=== PATIENT | female | born 1960 | race Caucasian/White ===

== ENCOUNTER → 2017-12-23 | Outpatient (CLI) | payer BC ==
[~2017-12-23] MED LIST: ADVIL; ASPEC325 PO; ATOR-24 PO; CLOP1TAB15 PO; LPR25 PO; LSN25 PO; NTRSLP4 SL; [UNRECOGNIZED DRUG - OTHER]
[2017-12-23 12:40] LABS: BASO % 0.5 %; BASO ABS # 0.04 K/uL (0-0.2); EOS % 2.8 %; EOS ABS # 0.23 K/uL (0-0.5); HEMATOCRIT 47.1 % (37-47); HEMOGLOBIN 15.7 g/dL (12.0-16.0); IG# 0.02 K/uL (0.00-0.02); LYMPH % 28.2 %; MEAN CELL VOLUME 90.4 fL (80-100); MEAN CORPUSCULAR HEMOGLOBIN 30.1 pg (25-34); MEAN CORPUSCULAR HGB CONC 33.3 g/dl (32-36); MEAN PLATELET VOLUME 12.8 fL (7.4-10.4); MONO % 6.4 %; MONO ABS # 0.52 K/uL (0.11-0.59); NEUT % 61.9 %; NEUT ABS # 5.05 K/uL (1.4-6.5); PLATELET COUNT 189 K/uL (130-400); RED CELL DISTRIBUTION WIDTH CV 14.4 % (11.5-14.5); RED CELL DISTRIBUTION WIDTH SD 48.3 fL (36.4-46.3); WHITE BLOOD COUNT 8.16 K/uL (4.8-10.8)
[2017-12-23 13:07] LABS: HEMOGLOBIN A1C 6.3 % (4.5-5.6)
[2017-12-23 13:59] LABS: ALBUMIN 3.9 gm/dl (3.4-5.0); ALT/SGPT 29 U/L (12-78); AST/SGOT 17 U/L (15-37); BLOOD UREA NITROGEN 25 mg/dl (7-18); CALCIUM 9.5 mg/dl (8.5-10.1); CARBON DIOXIDE 32 mmol/L (21-32); CHOLESTEROL 139 mg/dl (0-200); CREATININE 0.88 mg/dl (0.60-1.20); GLUCOSE 96 mg/dl (70-99); POTASSIUM 4.1 mmol/L (3.5-5.1); SODIUM 138 mmol/L (136-145)
[2017-12-23 14:12] LABS: ALKALINE PHOSPHATASE 95 U/L (45-117); LDL CHOLESTEROL CALCULATED 80 mg/dl; TOTAL PROTEIN 7.6 gm/dl (6.4-8.2)
== END | disposition home or self-care (01) ==
LOC: C.LABPVFM 10:19
PROVIDERS: ATTEND Internal Medicine Cardiovascular Disease
DX: R73.01 Impaired fasting glucose (principal)

== ENCOUNTER 2020-06-13 04:10 | Inpatient (IN) ==
[2020-06-13] MEDS ORDERED: SODIUM CHLORIDE 0.9% 1000ML 1,000 ML IV ONE ×2 (04:38→06:01)
[2020-06-13] MEDS ORDERED: CEFEPIME 2,000 MG/20 ML VIAL IV STA (04:38)
[2020-06-13] MEDS ORDERED: VANCOMYCIN HCL 2,750 MG in SODIUM CHLORIDE 0.9% 500 ML IV ONE (04:49)
[2020-06-13] MEDS ORDERED: VANCOMYCIN CONSULT ACTIVE PRN (04:49)
--- NOTE | 2020-06-13 05:05 | Emergency Department Note ---
History of Present Illness General Chief complaint: Infection Stated complaint: GURWINDER PORT INFECTED Time Seen by Provider: 06/13/20 04:24 Source: patient Mode of arrival: ambulatory Limitations: no limitations History of Present Illness Provider complaint: "My chemo port is infected and now I have a fever" Onset (ago): day(s) 2 Location: chest Severity: moderate Pain Consistency: + constant Current Pain Intensity: 0 Quality: + aching and + sharp Relieved By: + none Exacerbated By: + movement and + other (palpation) Associated symptoms: + fever/chills Treatments prior to arrival: other (antibiotics) This 59-year-old female patient presents the emergency department today for evaluation of infected Chemo-Port and fever. The patient does have a history of non-small cell lung cancer which has metastasized and has been getting chemotherapy treatments. Her most recent treatment was on 06/07/2020. The oriana garvey had a [id number] placed in the right chest on 05/21/2020. The patient states for the past 2 to 3 days, she has been experiencing some pain in the area of the port. She was seen yesterday by her surgeon, Dr. Beltran, who obtained a culture and started her on what is believed to be Augmentin. The patient states she has been taking these medications, but that 3 AM awoke due to the pain in the port and noticed that she had a fever of 100.3 F. The patient states there has been purulent discharge coming from the port for the past 2 nights. The patient had the port cleaned as an outpatient yesterday due to the infection. She denies any associated symptoms including chest pain, dyspnea, nausea, vomiting, numbness, tingling, weakness, headache, dizziness, or other associated symptoms. She is scheduled for her next chemotherapy treatment on 06/24/2020. Home Medications Home Medications Medication Instructions Recorded Confirmed Type acyclovir 400 mg tablet 400 mg PO UD PRN tab 06/19/19 06/13/20 History nitroglycerin 0.4 mg sublingual 0.4 mg SL Q5M PRN #100 tab 06/19/19 06/13/20 History tablet albuterol sulfate 90 mcg/actuation 1 puffs INH Q6H PRN #18 gm 07/20/19 06/13/20 Rx aerosol inhaler acetaminophen [Tylenol Arthritis 650 mg PO Q12H PRN 04/15/20 06/13/20 History Pain] aspirin 81 mg PO QAM 04/15/20 06/13/20 History bupropion HCl 300 mg 24 hr tablet, 300 mg PO QAM 05/02/20 06/13/20 History extended release cetirizine 10 mg capsule 10 mg PO DAILY PRN cap 05/02/20 06/13/20 History cholecalciferol (vitamin D3) 25 25 mcg PO QAM 05/02/20 06/13/20 History mcg (1,000 unit) capsule metformin 500 mg tablet,extended 500 mg PO HS tab 05/02/20 06/13/20 History release 24 hr metoprolol succinate 50 mg 50 mg PO HS tab 05/02/20 06/13/20 History tablet,extended release 24 hr ondansetron HCl 8 mg tablet 8 mg PO Q8H PRN 05/02/20 06/13/20 History prochlorperazine maleate 10 mg 10 mg PO Q6H PRN 05/02/20 06/13/20 History tablet tiotropium bromide 2.5 2 puffs INH QAM 05/02/20 06/13/20 History mcg/actuation mist for inhalation dexamethasone 4 mg tablet 4 mg PO TID #60 tab 05/20/20 06/13/20 Rx oxycodone-acetaminophen [Percocet] 1 tab PO Q6H PRN #10 tab 05/21/20 06/13/20 Rx atorvastatin 80 mg tablet 80 mg PO HS #90 tab 05/29/20 06/13/20 Rx clopidogrel 75 mg tablet 75 mg PO QAM #90 tab 05/29/20 06/13/20 Rx amoxicillin-pot clavulanate 1 tab PO BID 06/13/20 06/13/20 History furosemide 20 mg PO DAILY 06/13/20 06/13/20 History losartan 50 mg PO DAILY 06/13/20 06/13/20 History Allergies Allergy/AdvReac Type Severity Reaction Status Date / Time LETTY Inhibitors Allergy Unknown Unknown Verified 06/13/20 05:02 lisinopril Allergy Unknown Unknown Verified 06/13/20 05:02 tree and shrub pollen Allergy Nasal Verified 06/13/20 05:02 Discharge Past Med/Surg History Medical History CAD (coronary artery disease) S/p stent 2011 Diabetes mellitus, type 2 prediabetic Family history of reaction to anesthesia sister is hard to awaken Hypertension Lung mass small cell. 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 Sister No problems noted. Social History Smoking Status: Former smoker Tobacco Type: Cigarettes Age Started Using Tobacco: 15; Age Quit Using Tobacco: 59; packs per day: 1; Second Hand Exposure: Yes; Hx Alcohol Use: No Hx Substance Use: Yes (very occ marijuana) Last Used Substance: Days (ago) Last Used Substance Other:: uses for RLS. 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 Feels Safe at Home: Yes Childhood Exposure to Second-Hand Smoke: Yes caffeine: No Dental Care, Regularly: No Physical Activity Frequency: Does not Exercise Seatbelt Use: always Sunscreen Use: No Review of Systems A total of 10 systems reviewed and were otherwise negative Physical Exam Vital Signs Vital Signs - 24 hr 06/13/20 04:15 06/13/20 04:30 06/13/20 04:45 Temperature 37.8 C H Temperature Source Oral Pulse Rate 128 H 130 H 124 H Pulse Rate from SpO2 Sensor 130 H Respiratory Rate 18 25 H 33 H Respiratory Effort / Characteristics Non-Labored Spontaneous Respiratory Depth Normal Blood Pressure 122/51 L 100/88 131/78 Blood Pressure Mean 74 90 114 Pulse Oximetry 94 92 Oxygen Delivery Method Room Air Sepsis Recent Fever Within 48 Hours Yes Sepsis New/Unexplained Change in Mental Status No Sepsis Action Taken by Nursing No Action Required 06/13/20 05:00 06/13/20 05:01 06/13/20 05:15 Temperature Temperature Source Pulse Rate 130 H 126 H Pulse Rate from SpO2 Sensor 130 H 126 H Respiratory Rate 20 26 H 26 H Respiratory Effort / Characteristics Spontaneous Respiratory Depth Blood Pressure 136/95 105/70 Blood Pressure Mean 102 84 Pulse Oximetry 93 93 92 Oxygen Delivery Method Room Air Sepsis Recent Fever Within 48 Hours Sepsis New/Unexplained Change in Mental Status Sepsis Action Taken by Nursing 06/13/20 05:16 06/13/20 05:30 06/13/20 05:31 Temperature 39.5 C H Temperature Source Oral Pulse Rate 127 H 128 H Pulse Rate from SpO2 Sensor 127 H 128 H Respiratory Rate 24 21 Respiratory Effort / Characteristics Respiratory Depth Blood Pressure 121/66 Blood Pressure Mean 77 Pulse Oximetry 92 93 Oxygen Delivery Method Sepsis Recent Fever Within 48 Hours Sepsis New/Unexplained Change in Mental Status Sepsis Action Taken by Nursing 06/13/20 05:54 06/13/20 06:00 06/13/20 06:15 Temperature Temperature Source Pulse Rate 126 H 125 H 120 H Pulse Rate from SpO2 Sensor 127 H 125 H 121 H Respiratory Rate 25 H 17 21 Respiratory Effort / Characteristics Respiratory Depth Blood Pressure 88/47 L 100/70 99/46 L Blood Pressure Mean 71 75 75 Pulse Oximetry 93 93 92 Oxygen Delivery Method Sepsis Recent Fever Within 48 Hours Sepsis New/Unexplained Change in Mental Status Sepsis Action Taken by Nursing 06/13/20 06:30 06/13/20 06:36 06/13/20 07:04 Temperature 37.4 C Temperature Source Oral Pulse Rate 119 H Pulse Rate from SpO2 Sensor 120 H Respiratory Rate 25 H Respiratory Effort / Characteristics Respiratory Depth Blood Pressure 94/47 L Blood Pressure Mean 65 Pulse Oximetry 93 93 Oxygen Delivery Method Room Air Sepsis Recent Fever Within 48 Hours Sepsis New/Unexplained Change in Mental Status Sepsis Action Taken by Nursing VITALS: Vitals are noted on the nurse's note and reviewed by myself. Vital signs stable. GENERAL: This is a 59-year-old white female, in no acute distress, nondiaphoretic, well-developed well-nourished. SKIN: Ecchymosis noted in the area of the port on the right anterior chest. There is tenderness to palpation of the right anterior chest wall. There is purulent discharge noted from the incision site. There is warmth of the area. The skin was otherwise without rashes, erythema, edema, or bruising. There is no tenting of the skin. Capillary refill less than 2 seconds. HEAD: Normocephalic atraumatic. EYES: Conjunctivae without injection, sclerae without icterus. NECK: Supple without nuchal rigidity. No lymphadenopathy. No JVD. HEART: Regular rate and rhythm without murmurs gallops or rubs. LUNGS: Clear to auscultation bilaterally without wheezes, rales or rhonchi. No retractions or accessory muscle use. MUSCULOSKELETAL: No muscle atrophy, erythema, or edema noted. Full range of motion without joint tenderness in all extremities. No tenderness to palpation. Strength 5/5 throughout. NEURO: Patient was alert and oriented to person place and time. Normal sensation to light and sharp touch. No focal neurological deficits. Course Course The patient was seen and evaluated as above. An order was placed for continuous cardiac monitoring. The monitor shows a sinus tachycardia at a rate of 125 bpm. I discussed the case with my attending physician. IV access obtained, labs drawn. Patient medicated with IV fluids, cefepime, vancomycin. Patient medicated with IV acetaminophen due to fever. Imaging performed and reviewed by myself and radiologist as noted. Labs reviewed by myself. I discussed the findings with the patient at bedside. I discussed the case with Dr. Nunez, [facility] physician. He did agree to see and evaluate the patient. Administered Medications Vancomycin HCl 2,750 mg/ (Sodium Chloride) 555 mls @ 200 mls/hr IV NOW ONE Stop: 06/13/20 07:18 Last Admin: 06/13/20 05:21 Dose: 200 mls/hr Documented by: [id number] Magnesium Sulfate/Dextrose (Magnesium Sulfate / D5w) 1 gm in 100 mls @ 50 mls/hr IV Q2H LALY Stop: 06/13/20 10:14 Last Admin: 06/13/20 06:19 Dose: 50 mls/hr Documented by: [id number] Discontinued Medications Dexamethasone (Dexamethasone Sod Inj 4 Mg/Ml Vial) Confirm Administered Dose 4 mg .ROUTE .STK-MED ONE Stop: 06/13/20 07:07 Last Admin: 06/13/20 07:10 Dose: 4 mg Documented by: [id number] Cefepime HCl (Maxipime) 2,000 mg in 20 mls @ 5 mls/min IV NOW STA; Protocol Stop: 06/13/20 04:41 Last Admin: 06/13/20 04:57 Dose: 5 mls/min Documented by: [id number] Sodium Chloride (Nss 1000ml) 1,000 mls @ 999 mls/hr IV .Q1H1M ONE Stop: 06/13/20 05:38 Last Infusion: 06/13/20 06:04 Dose: 0 mls/hr Documented by: [id number] Admin: 06/13/20 04:51 Dose: 999 mls/hr Documented by: [id number] Acetaminophen (Ofirmev) 1,000 mg in 100 mls @ 400 mls/hr IV NOW STA Stop: 06/13/20 05:48 Last Infusion: 06/13/20 06:09 Dose: 0 mls/hr Documented by: [id number] Admin: 06/13/20 05:52 Dose: 400 mls/hr Documented by: [id number] Sodium Chloride (Nss 1000ml) 1,000 mls @ 999 mls/hr IV .Q1H1M ONE Stop: 06/13/20 07:01 Last Admin: 06/13/20 06:18 Dose: 999 mls/hr Documented by: [id number] Dexamethasone Sodium Phosphate (4 mg/ Syringe) 1 mls @ 1 mls/min IV NOW STA Stop: 06/13/20 06:51 Last Admin: 06/13/20 07:10 Dose: Not Given Documented by: [id number] Ioversol (Optiray 320 125ml) 125 ml IV ONCE ONE Stop: 06/13/20 06:06 Last Admin: 06/13/20 06:05 Dose: 118 ml Documented by: [id number] Potassium Chloride (Potassium Chloride 20 Meq Tabcr) 40 meq PO NOW STA Stop: 06/13/20 06:07 Last Admin: 06/13/20 06:18 Dose: 40 meq Documented by: [id number] Medical Decision Making Differential Diagnosis Sepsis, UTI, pneumonia, metabolic, electrolyte abnormalities, cardiac sources, i ntracerebral event, toxicologic, neurologic, as well as other pathologies. Medical Records Attestation: I reviewed the patient's medical records. Home Medications Current Medication List: was personally reviewed by me Laboratory Data Attestation: I reviewed the patient's lab results. Patient is leukopenic with a white blood cell count of 0.35. No significant anemia. Platelet count 78,000. Coags normal. Renal, hepatic function and electrolytes without significant abnormality. Magnesium 1.6. Lactic acid 2.6. Urinalysis negative for infection. Result diagrams: 06/13/20 04:54 06/13/20 04:54 Lab Results 06/13/20 06/13/20 06/13/20 Range/Units 04:54 04:54 04:54 WBC 0.35 L* (4.8-10.8) K/uL RBC 4.00 L (4.2-5.4) M/uL Hgb 12.1 (12.0-16.0) g/dL Hct 36.7 L (37-47) % MCV 91.8 (80-100) fL MCH 30.3 (25-34) pg MCHC 33.0 (32-36) g/dL RDW Std Deviation 51.5 H (36.4-46.3) fL RDW Coeff of Placido 15.2 H (11.5-14.5) % Plt Count 78 L (130-400) K/uL MPV 10.2 (7.4-10.4) fL Immature Gran % (Auto) Cancelled Neut % (Auto) Cancelled Lymph % (Auto) Cancelled [place] % (Auto) Cancelled Eos % (Auto) Cancelled Baso % (Auto) Cancelled Neut # (Auto) Cancelled Lymph # (Auto) Cancelled [place] # (Auto) Cancelled Eos # (Auto) Cancelled Baso # (Auto) Cancelled Immature Gran # (Auto) Cancelled Neutrophils % (Manual) Cancelled Band Neutrophils % Cancelled Lymphocytes % (Manual) Cancelled Prolymphocyte % Cancelled Reactive Lymphs % (Man) Cancelled Monocytes % (Manual) Cancelled Eosinophils % (Manual) Cancelled Basophils % (Manual) Cancelled Metamyelocytes % (Man) Cancelled Myelocytes % (Man) Cancelled Promyelocytes % (Man) Cancelled Blast Cells % (Manual) Cancelled Plasma Cell % (Manual) Cancelled Other Cells % Cancelled Nucleated RBC % Cancelled Neutrophils # (Manual) Cancelled Band Neutrophils # Cancelled Total Absolute Neuts Cancelled Lymphocytes # (Manual) Cancelled Prolymphocyte # Cancelled Reactive Lymphs # Cancelled Total Abs Lymphocytes Cancelled Monocytes # (Manual) Cancelled Eosinophils # (Manual) Cancelled Basophils # (Manual) Cancelled Metamyelocytes # (Man) Cancelled Myelocytes # (Manual) Cancelled Promyelocytes # (Man) Cancelled Blast Cells # (Man) Cancelled Plasma Cell # (Manual) Cancelled Other Cells # Cancelled Nucleated RBCs # (Man) Cancelled Hypersegmented Neuts Cancelled Hyposegmented Neuts Cancelled Hypogranular Neuts Cancelled Large Granular Lymphs Cancelled # Lrg Granular Lymphs Cancelled Hairy Cells Cancelled Smudge Cells Cancelled Toxic Granulation Cancelled Toxic Vacuolation Cancelled Dohle Bodies Cancelled Leyla Rods Cancelled Platelet Estimate Decreased L (Normal) Hypogranular Platelets Cancelled Clumped Platelets Cancelled Giant Platelets Cancelled Platelet Satelliting Cancelled RBC Morphology Cancelled Polychromasia Cancelled Hypochromasia Cancelled Poikilocytosis Cancelled Basophilic Stippling Cancelled Anisocytosis Cancelled Microcytosis Cancelled Macrocytosis Cancelled Spherocytes Cancelled Pappenheimer Bodies Cancelled Sickle Cells Cancelled Target Cells Cancelled Tear Drop Cells Cancelled Ovalocytes Cancelled Stomatocytes Cancelled [place] Bodies Cancelled Echinocytes Cancelled Acanthocytes (Spur) Cancelled Rouleaux Cancelled RBC Agglutinates Cancelled Schistocytes Cancelled RBC Morph Comment Cancelled Sezary Cell Cancelled PT 10.9 (9.0-12.0) Seconds INR 1.0 (0.9-1.1) APTT 23.4 (21.0-31.0) Seconds PTT Ratio 0.8 Sodium 140 (136-145) mmol/L Potassium 3.7 (3.5-5.1) mmol/L Chloride 107 (98-107) mmol/L Carbon Dioxide 27 (21-32) mmol/L Anion Gap 6.0 (3-11) BUN 21 H (7-18) mg/dl Creatinine 0.74 (0.6-1.2) mg/dl Est Cr Clr Drug Dosing 118.6 ml/min Est GFR ( Amer) 102.8 Est GFR (Non-Af Amer) 88.7 BUN/Creatinine Ratio 27.8 H (10-20) Glucose 123 H (70-99) mg/dl Lactate (0.4-2.0) mmol/L Calcium 8.3 L (8.5-10.1) mg/dl Magnesium 1.6 L (1.8-2.4) mg/dl Total Bilirubin 1.0 (0.2-1) mg/dl AST 19 (15-37) U/L ALT 61 (12-78) U/L Alkaline Phosphatase 69 (45-117) U/L Total Protein 6.1 L (6.4-8.2) gm/dl Albumin 2.6 L (3.4-5.0) gm/dl Globulin 3.5 (2.5-4.0) gm/dl Albumin/Globulin Ratio 0.7 L (0.9-2) Urine Color Urine Appearance (Clear) Urine pH (4.5-7.5) Ur Specific Atkins (1.000-1.030) Urine Protein (Negative) Urine Glucose (UA) (Negative) Urine Ketones (Negative) Urine Blood (Negative) Urine Nitrite (Negative) Urine Bilirubin (Negative) Urine Urobilinogen (Negative) Ur Leukocyte Esterase (Negative) Urine WBC (Auto) (0-5) /hpf Urine RBC (Auto) (0-4) /hpf U Hyaline Cast (Auto) (0-5) /lpf U Epithel Cells (Auto) (0-5) /lpf Urine Bacteria (Auto) (Negative) 06/13/20 06/13/20 Range/Units 04:54 05:15 WBC (4.8-10.8) K/uL RBC (4.2-5.4) M/uL Hgb (12.0-16.0) g/dL Hct (37-47) % MCV (80-100) fL MCH (25-34) pg MCHC (32-36) g/dL RDW Std Deviation (36.4-46.3) fL RDW Coeff of Placido (11.5-14.5) % Plt Count (130-400) K/uL MPV (7.4-10.4) fL Immature Gran % (Auto) Neut % (Auto) Lymph % (Auto) [place] % (Auto) Eos % (Auto) Baso % (Auto) Neut # (Auto) Lymph # (Auto) [place] # (Auto) Eos # (Auto) Baso # (Auto) Immature Gran # (Auto) Neutrophils % (Manual) Band Neutrophils % Lymphocytes % (Manual) Prolymphocyte % Reactive Lymphs % (Man) Monocytes % (Manual) Eosinophils % (Manual) Basophils % (Manual) Metamyelocytes % (Man) Myelocytes % (Man) Promyelocytes % (Man) Blast Cells % (Manual) Plasma Cell % (Manual) Other Cells % Nucleated RBC % Neutrophils # (Manual) Band Neutrophils # Total Absolute Neuts Lymphocytes # (Manual) Prolymphocyte # Reactive Lymphs # Total Abs Lymphocytes Monocytes # (Manual) Eosinophils # (Manual) Basophils # (Manual) Metamyelocytes # (Man) Myelocytes # (Manual) Promyelocytes # (Man) Blast Cells # (Man) Plasma Cell # (Manual) Other Cells # Nucleated RBCs # (Man) Hypersegmented Neuts Hyposegmented Neuts Hypogranular Neuts Large Granular Lymphs # Lrg Granular Lymphs Hairy Cells Smudge Cells Toxic Granulation Toxic Vacuolation Dohle Bodies Leyla Rods Platelet Estimate (Normal) Hypogranular Platelets Clumped Platelets Giant Platelets Platelet Satelliting RBC Morphology Polychromasia Hypochromasia Poikilocytosis Basophilic Stippling Anisocytosis Microcytosis Macrocytosis Spherocytes Pappenheimer Bodies Sickle Cells Target Cells Tear Drop Cells Ovalocytes Stomatocytes [place] Bodies Echinocytes Acanthocytes (Spur) Rouleaux RBC Agglutinates Schistocytes RBC Morph Comment Sezary Cell PT (9.0-12.0) Seconds INR (0.9-1.1) APTT (21.0-31.0) Seconds PTT Ratio Sodium (136-145) mmol/L Potassium (3.5-5.1) mmol/L Chloride (98-107) mmol/L Carbon Dioxide (21-32) mmol/L Anion Gap (3-11) BUN (7-18) mg/dl Creatinine (0.6-1.2) mg/dl Est Cr Clr Drug Dosing ml/min Est GFR ( Amer) Est GFR (Non-Af Amer) BUN/Creatinine Ratio (10-20) Glucose (70-99) mg/dl Lactate 2.6 H* (0.4-2.0) mmol/L Calcium (8.5-10.1) mg/dl Magnesium (1.8-2.4) mg/dl Total Bilirubin (0.2-1) mg/dl AST (15-37) U/L ALT (12-78) U/L Alkaline Phosphatase (45-117) U/L Total Protein (6.4-8.2) gm/dl Albumin (3.4-5.0) gm/dl Globulin (2.5-4.0) gm/dl Albumin/Globulin Ratio (0.9-2) Urine Color Yellow Urine Appearance Clear (Clear) Urine pH 7.5 (4.5-7.5) Ur Specific Atkins 1.016 (1.000-1.030) Urine Protein Negative (Negative) Urine Glucose (UA) Negative (Negative) Urine Ketones Negative (Negative) Urine Blood Trace H (Negative) Urine Nitrite Negative (Negative) Urine Bilirubin Negative (Negative) Urine Urobilinogen Negative (Negative) Ur Leukocyte Esterase Negative (Negative) Urine WBC (Auto) 1-5 (0-5) /hpf Urine RBC (Auto) 5-10 H (0-4) /hpf U Hyaline Cast (Auto) 1-5 (0-5) /lpf U Epithel Cells (Auto) 20-30 H (0-5) /lpf Urine Bacteria (Auto) Negative (Negative) Imaging Data Attestation: I personally reviewed and interpreted this imaging study as foll ows: My Impression: Chest x-ray. Findings: A chest x-ray was performed and revealed no pneumothorax, effusion, infiltrate, pulmonary edema, free air under the diaph ragm, or wide mediastinum. Radiologist's Impression: CT chest w con CT DOSE: 1197.85 mGy.cm HISTORY: infected port right side TECHNIQUE: Multiaxial CT images of the chest were performed following the intravenous administration of contrast. A dose lowering technique was utilized adhering to the principles of ALARA. COMPARISON: 04/01/2020 FINDINGS: Central catheter in position. Infiltrative change surrounding the port involving the subcutaneous tissues. An inflammatory process is not excluded. There is no evidence for a well-defined abscess or collection. Consolidative infiltrate anterior aspect left upper lobe. Scattered small parenchymal nodules which are similar. No significant mediastinal or hilar adenopathy. IMPRESSION: 1. Central port showing no evidence for infiltrative change surrounding the port within the subcutaneous fat. 2. Inflammatory and/or infectious process is considered. 3. No evidence for abscess or collection. 4. Consolidative infiltrative process anterior aspect left upper lobe. 5. Scattered parenchymal nodules unchanged from the prior exam. ACT 112: Negative or not required by law. The above report was generated using voice recognition software. It may contain grammatical, syntax or spelling errors. Electronically signed by: Nehemiah Ayoub M.D. 06/13/2020 6:43 AM ECG Data Attestation: I personally reviewed and interpreted this ECG as follows: Indication: + tachycardia Rate (beats per minute): 129 Rhythm: + sinus tachycardia ECG [place]: + Normal ECG ST segments: no ST depression, no ST elevation and no T-wave inversions Comparison ECG Date: from (04/15/2020) Change: the following changes noted (Sinus tachycardia has now replaced sinus rhythm.) Blood Pressure Blood Pressure Findings: Normal blood pressure MDM Narrative This 59-year-old female patient presents to the emergency department today for an infected Chemo-Port. This was noted to be infected to 3 days ago. The patient was seen by the surgeon yesterday and had the port cleaned and was started on antibiotics. She woke in the middle of the night with a fever. She presents to the emergency department with a fever as well as tachycardia. She was found to be leukopenic with an elevated lactic acid. Blood cultures are pending. Culture of the wound and discharge was obtained and is pending. Patient was hydrated with IV fluids and started on IV antibiotics. She will be admitted to the [facility] service for ongoing management of the inf ection. The chart was completed utilizing [employer] Speech voice recognition software. Grammatical errors, random word insertions, pronoun errors, and incomplete sentences are an occasional consequence of this system due to software limitations, ambient noise, and hardware issues. Any formal questions or concerns about the content, text, or information contained within the body of this dictation should be directly addressed to the provider for clarification. Impression & Plan Sepsis, Lung cancer metastatic to brain, Infected venous access port Discharge Plan Visit Data Chief Complaint: Infection Stated Complaint: GURWINDER PORT INFECTED ED Provider: Bella Ku ED Midlevel Provider: Leigh Quispe Discharge Problem: Sepsis, Lung cancer metastatic to brain, Infected venous access port Patient Disposition: Admitted As Inpatient Forms Stand Alone Forms: On License Of [facility], Virtual Emergency Department, Important Visit Information Prescriptions Prescriptions: No Action ondansetron HCl 8 mg tablet 8 mg PO Q8H PRN (Reason: Nausea) RF: 0 prochlorperazine maleate 10 mg tablet 10 mg PO Q6H PRN (Reason: Nausea) RF: 0 bupropion HCl 300 mg tablet extended release 24 hr 300 mg PO QAM RF: 0 Allergy Relief (cetirizine) 10 mg capsule 10 mg PO DAILY PRN (Reason: Allergy Symptoms) RF: 0 cholecalciferol (vitamin D3) 25 mcg (1,000 unit) capsule 25 mcg PO QAM RF: 0 Spiriva Respimat 2.5 mcg/actuation mist 2 puffs INH QAM RF: 0 dexamethasone 4 mg tablet 4 mg PO TID Qty: 60 RF: 0 atorvastatin 80 mg tablet 80 mg PO HS Qty: 90 RF: 3 clopidogrel 75 mg tablet 75 mg PO QAM Qty: 90 RF: 3 acyclovir 400 mg tablet 400 mg PO UD PRN (Reason: Outbreak) RF: 0 nitroglycerin 0.4 mg tablet, sublingual 0.4 mg SL Q5M PRN (Reason: chest pain) Qty: 100 RF: 0 albuterol sulfate 90 mcg/actuation HFA aerosol inhaler 1 puffs INH Q6H PRN (Reason: shortness of breath or wheezing) Qty: 18 RF: 0 oxycodone-acetaminophen [Percocet] 5-325 mg tablet 1 tab PO Q6H PRN (Reason: pain) Qty: 10 RF: 0 aspirin 81 mg Tablet,Delayed Release (Dr/Ec) 81 mg PO QAM RF: 0 acetaminophen [Tylenol Arthritis Pain] 650 mg Tablet Extended Release 650 mg PO Q12H PRN (Reason: Pain) RF: 0 metformin 500 mg tablet extended release 24 hr 500 mg PO HS RF: 0 metoprolol succinate 50 mg tablet extended release 24 hr 50 mg PO HS RF: 0 amoxicillin-pot clavulanate 875-125 mg tablet 1 tab PO BID RF: 0 furosemide 20 mg tablet 20 mg PO DAILY RF: 0 losartan 50 mg tablet 50 mg PO DAILY RF: 0 Referrals Referrals: Keila Freire, [Primary Care Provider] -
[2020-06-13 05:22] LABS: Albumin Level 2.6 gm/dl (3.4-5.0); BUN Creatinine Ratio 27.8 (10-20); Calcium 8.3 mg/dl (8.5-10.1); Creatinine Clr Calc Pharmacy 118.6 ml/min; Est GFR (African American) 102.8; Est GFR (Non-African American) 88.7; Magnesium 1.6 mg/dl (1.8-2.4); Potassium 3.7 mmol/L (3.5-5.1)
[2020-06-13 05:23] LABS: Partial Thromboplastin Ratio 0.8; Partial Thromboplastin Time 23.4 Seconds (21.0-31.0); Prothrombin Time 10.9 Seconds (9.0-12.0)
[2020-06-13 05:25] LABS: Albumin Globulin Ratio 0.7 (0.9-2); Globulin 3.5 gm/dl (2.5-4.0); Total Protein 6.1 gm/dl (6.4-8.2)
[2020-06-13 05:34] LABS: Hematocrit (blood only) 36.7 % (37-47); Hemoglobin 12.1 g/dL (12.0-16.0); Mean Corpuscular Hemoglobin 30.3 pg (25-34); Mean Corpuscular Volume 91.8 fL (80-100); Mean Platelet Volume 10.2 fL (7.4-10.4); Platelet Count 78 K/uL (130-400); RDW Coefficient of Variation 15.2 % (11.5-14.5); RDW Standard Deviation 51.5 fL (36.4-46.3); White Blood Count 0.35 K/uL (4.8-10.8)
[2020-06-13] MEDS ORDERED: ACETAMINOPHEN 1,000 MG/100 ML VIAL IV STA (05:34)
[2020-06-13 05:36] LABS: Platelet Estimate Decreased (Normal)
[2020-06-13 06:00] LABS: Appearance Urine Clear (Clear); Bacteria Urine Automated Negative (Negative); Bilirubin Urine Negative (Negative); Blood Urine Trace (Negative); Color Urine Yellow; Epithelial Cell Urine Auto 20-30 /lpf (0-5); Glucose Urine UA Negative (Negative); Ketones Urine Negative (Negative); Leukocyte Esterase Urine Negative (Negative); Nitrite Urine Negative (Negative); Specific Gravity Urine 1.016 (1.000-1.030); Urobilinogen Urine Negative (Negative); pH Urine 7.5 (4.5-7.5)
[2020-06-13] MEDS ORDERED: OPTIRAY 320 125ml IV ONE (06:05)
[2020-06-13] MEDS ORDERED: POTASSIUM CHLORIDE 20 MEQ TABCR PO STA (06:06)
[2020-06-13 06:08] LABS: Protein Urine Negative (Negative); Sulfosalicylic Acid Urine Negative (Negative)
[2020-06-13] MEDS: MAGNESIUM SULFATE / D5W 1 GM/100 ML BAG IV SCH ×2 (06:19→07:37)
--- NOTE | 2020-06-13 06:35 | History & Physical Report ---
Date of Service June 13, 2020 Assessment & Plan (1) Severe sepsis: SIRS plus lactic acidosis Immunocompromised patient hx small cell lung cancer status post chemoradiation ongoing steroid Rx Failed outpatient treatment Possible sources : Vascular device infection, history Aport placement last month Endocarditis Hypotension secondary to above Possible adrenal insufficiency hx steroid Rx for SCLC Neutropenia, thrombocytopenia secondary to sepsis hx CAD status post stent DM 2 on oral medications, well-controlled as all recent outpatient hemoglobin A1c of 6.03 Mar 2020 Facial lesions (HSV outbreak as per patient) ongoing antiviral Rx past tobacco abuse PCU given low BP Cultures, Vancomycin, Cefepime for now IVF, follow lactic acid Appropriate to hold antihypertensives for now given low BP Decadron IV 1 dose for possible adrenal insufficiency follow CT chest result Surgery consult Re: Sepsis, a port infection follow-up eval N.p.o. until patient seen by surgery Basal insulin adjusted for n.p.o. status, ISS BG goal [id number] DVT prophylaxis. SCDs RE thrombocytopenia, history intracranial mets Full code Text document was generated using [employer] voice recognition software. It may contain grammatical or spelling errors. Kindly contact undersigned for clarification of any documentation item in question. History of Present Illness Chief Complaint: Fever, chills, infected Aport site Primary Care Provider: Keila Freire DO History obtained from patient and records. Medical history significant for small cell lung cancer status post chemoradiation ongoing steroid Rx, CAD status post stent, hypertension, DM 2 on oral medications, past tobacco abuse. Last 2011 under Cardiology service for STEMI status post RCA stent placement. Patient diagnosed to have extensive small cell lung cancer with documented brain mets on MRI last April 2020. Underwent chemoradiation. Ongoing steroid taper as per patient. 3 weeks ago patient underwent tunneled Aport catheter placement on the right IJV by [facility] [place] General Surgery outpatient. Last week patient noted some discomfort and drainage on incision site. Patient seen at [facility] surgeon's office 2 days ago. Wound culture sent as per records. Topical bacitracin and Augmentin course prescribed by provider. Patient instructed to follow-up at the ER if with worsening. Patient woke up early this morning with fever, chills and pain on R port site. Achy left-sided chest discomfort nonradiating separate from a port site. No unusual cough, headache, abdominal pain/diarrhea/dysuria symptoms. At the ER, patient received vancomycin and cefepime for sepsis. 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 Allergies Allergy/AdvReac Type Severity Reaction Status Date / Time LETTY Inhibitors Allergy Unknown Unknown Verified 06/13/20 05:02 lisinopril Allergy Unknown Unknown Verified 06/13/20 05:02 tree and shrub pollen Allergy Nasal Verified 06/13/20 05:02 Discharge Home Medications Home Medications Medication Instructions Recorded Confirmed Type acyclovir 400 mg tablet 400 mg PO UD PRN tab 06/19/19 06/13/20 History nitroglycerin 0.4 mg sublingual 0.4 mg SL Q5M PRN #100 tab 06/19/19 06/13/20 History tablet albuterol sulfate 90 mcg/actuation 1 puffs INH Q6H PRN #18 gm 07/20/19 06/13/20 Rx aerosol inhaler acetaminophen [Tylenol Arthritis 650 mg PO Q12H PRN 04/15/20 06/13/20 History Pain] aspirin 81 mg PO QAM 04/15/20 06/13/20 History bupropion HCl 300 mg 24 hr tablet, 300 mg PO QAM 05/02/20 06/13/20 History extended release cetirizine 10 mg capsule 10 mg PO DAILY PRN cap 05/02/20 06/13/20 History cholecalciferol (vitamin D3) 25 25 mcg PO QAM 05/02/20 06/13/20 History mcg (1,000 unit) capsule metformin 500 mg tablet,extended 500 mg PO HS tab 05/02/20 06/13/20 History release 24 hr metoprolol succinate 50 mg 50 mg PO HS tab 05/02/20 06/13/20 History tablet,extended release 24 hr ondansetron HCl 8 mg tablet 8 mg PO Q8H PRN 05/02/20 06/13/20 History prochlorperazine maleate 10 mg 10 mg PO Q6H PRN 05/02/20 06/13/20 History tablet tiotropium bromide 2.5 2 puffs INH QAM 05/02/20 06/13/20 History mcg/actuation mist for inhalation dexamethasone 4 mg tablet 4 mg PO TID #60 tab 05/20/20 06/13/20 Rx oxycodone-acetaminophen [Percocet] 1 tab PO Q6H PRN #10 tab 05/21/20 06/13/20 Rx atorvastatin 80 mg tablet 80 mg PO HS #90 tab 05/29/20 06/13/20 Rx clopidogrel 75 mg tablet 75 mg PO QAM #90 tab 05/29/20 06/13/20 Rx amoxicillin-pot clavulanate 1 tab PO BID 06/13/20 06/13/20 History furosemide 20 mg PO DAILY 06/13/20 06/13/20 History losartan 50 mg PO DAILY 06/13/20 06/13/20 History Past Med/Surg History Medical History CAD (coronary artery disease) S/p stent 2011 Diabetes mellitus, type 2 prediabetic Family history of reaction to anesthesia sister is hard to awaken Hypertension Lung mass small cell. diagnosed dec 2019 On home oxygen therapy 02 at HS Osteoarthritis Restless leg syndrome Status post myocardial infarction of inferior wall (01/08/12) december 2011 Surgical History History of bronchoscopy 04/24/2020 History of laparoscopic cholecystectomy Hx of right coronary artery stent placement mid RCA bare metal 01/08/2012 [place] teeth extracted Family History Mother Coronary heart disease Diabetes Father , age 61 CHF Coronary heart disease Sister , age 20 MVA No problems noted. Sister No problems noted. Social History Smoking Status: Former smoker Tobacco Type: Cigarettes Age Started Using Tobacco: 15; Age Quit Using Tobacco: 59; packs per day: 1; Second Hand Exposure: No; Do You Dip or Chew Tobacco: No; Tobacco Cessation Education Requested by Patient: No Hx Alcohol Use: No Hx Substance Use: Yes Last Used Substance: Hours (ago) Last Used Substance Other:: uses for RLS. 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 Other Information That Helps Us Care for You: No Feels Safe at Home: Yes Safety Concerns: Feels Safe At This Time Childhood Exposure to Second-Hand Smoke: Yes caffeine: No Dental Care, Regularly: No Physical Activity Frequency: Does not Exercise Seatbelt Use: always Sunscreen Use: No Review of Systems Review of Systems: As per HPI, all 10 systems reviewed, all other ROS negative Physical Exam Physical Exam: GENERAL: uncomfortable, morbidly obese, Tachypneic SKIN: Normal color, warm HEENT: Alopecia, pink palpebral conjunctivae, no ptosis, some ulcerated lesions over the nasal bridge and maxilla, dry buccal mucosa NECK : Supple, short neck, no tenderness CHEST : Ecchymotic induration right chest wall, tender HEART : Tachycardic, no obvious murmurs ABDOMEN: Some distention, nontender EXTREMITIES : Ecchymotic spot RLE, bilateral LE swelling, no LE tenderness NEUROLOGIC : Coherent, no facial asymmetry, no other gross focality Results & Data Results & Data ([facility]) Vital Signs (Past 12 Hours) Vital Signs Temp Pulse Resp BP Pulse Ox 06/13/20 06:15 120 H 21 99/46 L 92 06/13/20 06:00 125 H 17 100/70 93 06/13/20 05:54 126 H 25 H 88/47 L 93 06/13/20 05:31 39.5 C H 06/13/20 05:30 128 H 21 121/66 93 06/13/20 05:16 127 H 24 92 06/13/20 05:15 126 H 26 H 105/70 92 06/13/20 05:01 130 H 26 H 136/95 93 06/13/20 05:00 20 93 06/13/20 04:45 124 H 33 H 131/78 06/13/20 04:30 130 H 25 H 100/88 92 06/13/20 04:15 37.8 C H 128 H 18 122/51 L 94 Laboratory Results Laboratory Results WBC 0.35 K/uL (4.8-10.8) L* 06/13/20 04:54 RBC 4.00 M/uL (4.2-5.4) L 06/13/20 04:54 Hgb 12.1 g/dL (12.0-16.0) 06/13/20 04:54 Hct 36.7 % (37-47) L 06/13/20 04:54 MCV 91.8 fL (80-100) 06/13/20 04:54 MCH 30.3 pg (25-34) 06/13/20 04:54 MCHC 33.0 g/dL (32-36) 06/13/20 04:54 RDW Std Deviation 51.5 fL (36.4-46.3) H 06/13/20 04:54 RDW Coeff of Placido 15.2 % (11.5-14.5) H 06/13/20 04:54 Plt Count 78 K/uL (130-400) L 06/13/20 04:54 MPV 10.2 fL (7.4-10.4) 06/13/20 04:54 Immature Gran % (Auto) Cancelled 06/13/20 04:54 Neut % (Auto) Cancelled 06/13/20 04:54 Lymph % (Auto) Cancelled 06/13/20 04:54 Eaton % (Auto) Cancelled 06/13/20 04:54 Eos % (Auto) Cancelled 06/13/20 04:54 Baso % (Auto) Cancelled 06/13/20 04:54 Neut # (Auto) Cancelled 06/13/20 04:54 Lymph # (Auto) Cancelled 06/13/20 04:54 Eaton # (Auto) Cancelled 06/13/20 04:54 Eos # (Auto) Cancelled 06/13/20 04:54 Baso # (Auto) Cancelled 06/13/20 04:54 Immature Gran # (Auto) Cancelled 06/13/20 04:54 Neutrophils % (Manual) Cancelled 06/13/20 04:54 Band Neutrophils % Cancelled 06/13/20 04:54 Lymphocytes % (Manual) Cancelled 06/13/20 04:54 Prolymphocyte % Cancelled 06/13/20 04:54 Reactive Lymphs % (Man) Cancelled 06/13/20 04:54 Monocytes % (Manual) Cancelled 06/13/20 04:54 Eosinophils % (Manual) Cancelled 06/13/20 04:54 Basophils % (Manual) Cancelled 06/13/20 04:54 Metamyelocytes % (Man) Cancelled 06/13/20 04:54 Myelocytes % (Man) Cancelled 06/13/20 04:54 Promyelocytes % (Man) Cancelled 06/13/20 04:54 Blast Cells % (Manual) Cancelled 06/13/20 04:54 Plasma Cell % (Manual) Cancelled 06/13/20 04:54 Other Cells % Cancelled 06/13/20 04:54 Nucleated RBC % Cancelled 06/13/20 04:54 Neutrophils # (Manual) Cancelled 06/13/20 04:54 Band Neutrophils # Cancelled 06/13/20 04:54 Total Absolute Neuts Cancelled 06/13/20 04:54 Lymphocytes # (Manual) Cancelled 06/13/20 04:54 Prolymphocyte # Cancelled 06/13/20 04:54 Reactive Lymphs # Cancelled 06/13/20 04:54 Total Abs Lymphocytes Cancelled 06/13/20 04:54 Monocytes # (Manual) Cancelled 06/13/20 04:54 Eosinophils # (Manual) Cancelled 06/13/20 04:54 Basophils # (Manual) Cancelled 06/13/20 04:54 Metamyelocytes # (Man) Cancelled 06/13/20 04:54 Myelocytes # (Manual) Cancelled 06/13/20 04:54 Promyelocytes # (Man) Cancelled 06/13/20 04:54 Blast Cells # (Man) Cancelled 06/13/20 04:54 Plasma Cell # (Manual) Cancelled 06/13/20 04:54 Other Cells # Cancelled 06/13/20 04:54 Nucleated RBCs # (Man) Cancelled 06/13/20 04:54 Hypersegmented Neuts Cancelled 06/13/20 04:54 Hyposegmented Neuts Cancelled 06/13/20 04:54 Hypogranular Neuts Cancelled 06/13/20 04:54 Large Granular Lymphs Cancelled 06/13/20 04:54 # Lrg Granular Lymphs Cancelled 06/13/20 04:54 Hairy Cells Cancelled 06/13/20 04:54 Smudge Cells Cancelled 06/13/20 04:54 Toxic Granulation Cancelled 06/13/20 04:54 Toxic Vacuolation Cancelled 06/13/20 04:54 Dohle Bodies Cancelled 06/13/20 04:54 Leyla Rods Cancelled 06/13/20 04:54 Platelet Estimate Decreased (Normal) L 06/13/20 04:54 Hypogranular Platelets Cancelled 06/13/20 04:54 Clumped Platelets Cancelled 06/13/20 04:54 Giant Platelets Cancelled 06/13/20 04:54 Platelet Satelliting Cancelled 06/13/20 04:54 RBC Morphology Cancelled 06/13/20 04:54 Polychromasia Cancelled 06/13/20 04:54 Hypochromasia Cancelled 06/13/20 04:54 Poikilocytosis Cancelled 06/13/20 04:54 Basophilic Stippling Cancelled 06/13/20 04:54 Anisocytosis Cancelled 06/13/20 04:54 Microcytosis Cancelled 06/13/20 04:54 Macrocytosis Cancelled 06/13/20 04:54 Spherocytes Cancelled 06/13/20 04:54 Pappenheimer Bodies Cancelled 06/13/20 04:54 Sickle Cells Cancelled 06/13/20 04:54 Target Cells Cancelled 06/13/20 04:54 Tear Drop Cells Cancelled 06/13/20 04:54 Ovalocytes Cancelled 06/13/20 04:54 Stomatocytes Cancelled 06/13/20 04:54 Pearson-Floydale Bodies Cancelled 06/13/20 04:54 Echinocytes Cancelled 06/13/20 04:54 Acanthocytes (Spur) Cancelled 06/13/20 04:54 Rouleaux Cancelled 06/13/20 04:54 RBC Agglutinates Cancelled 06/13/20 04:54 Schistocytes Cancelled 06/13/20 04:54 RBC Morph Comment Cancelled 06/13/20 04:54 Sezary Cell Cancelled 06/13/20 04:54 PT 10.9 Seconds (9.0-12.0) 06/13/20 04:54 INR 1.0 (0.9-1.1) 06/13/20 04:54 APTT 23.4 Seconds (21.0-31.0) 06/13/20 04:54 PTT Ratio 0.8 06/13/20 04:54 Sodium 140 mmol/L (136-145) 06/13/20 04:54 Potassium 3.7 mmol/L (3.5-5.1) 06/13/20 04:54 Chloride 107 mmol/L (98-107) 06/13/20 04:54 Carbon Dioxide 27 mmol/L (21-32) 06/13/20 04:54 Anion Gap 6.0 (3-11) 06/13/20 04:54 BUN 21 mg/dl (7-18) H 06/13/20 04:54 Creatinine 0.74 mg/dl (0.6-1.2) 06/13/20 04:54 Est Cr Clr Drug Dosing 118.6 ml/min 06/13/20 04:54 Est GFR ( Amer) 102.8 06/13/20 04:54 Est GFR (Non-Af Amer) 88.7 06/13/20 04:54 BUN/Creatinine Ratio 27.8 (10-20) H 06/13/20 04:54 Glucose 123 mg/dl (70-99) H 06/13/20 04:54 Lactate 2.6 mmol/L (0.4-2.0) H* 06/13/20 04:54 Calcium 8.3 mg/dl (8.5-10.1) L 06/13/20 04:54 Magnesium 1.6 mg/dl (1.8-2.4) L 06/13/20 04:54 Total Bilirubin 1.0 mg/dl (0.2-1) 06/13/20 04:54 AST 19 U/L (15-37) 06/13/20 04:54 ALT 61 U/L (12-78) 06/13/20 04:54 Alkaline Phosphatase 69 U/L (45-117) 06/13/20 04:54 Total Protein 6.1 gm/dl (6.4-8.2) L 06/13/20 04:54 Albumin 2.6 gm/dl (3.4-5.0) L 06/13/20 04:54 Globulin 3.5 gm/dl (2.5-4.0) 06/13/20 04:54 Albumin/Globulin Ratio 0.7 (0.9-2) L 06/13/20 04:54 Urine Color Yellow 06/13/20 05:15 Urine Appearance Clear (Clear) 06/13/20 05:15 Urine pH 7.5 (4.5-7.5) 06/13/20 05:15 Ur Specific Sultan 1.016 (1.000-1.030) 06/13/20 05:15 Urine Protein Negative (Negative) 06/13/20 05:15 Urine Glucose (UA) Negative (Negative) 06/13/20 05:15 Urine Ketones Negative (Negative) 06/13/20 05:15 Urine Blood Trace (Negative) H 06/13/20 05:15 Urine Nitrite Negative (Negative) 06/13/20 05:15 Urine Bilirubin Negative (Negative) 06/13/20 05:15 Urine Urobilinogen Negative (Negative) 06/13/20 05:15 Ur Leukocyte Esterase Negative (Negative) 06/13/20 05:15 Urine WBC (Auto) 1-5 /hpf (0-5) 06/13/20 05:15 Urine RBC (Auto) 5-10 /hpf (0-4) H 06/13/20 05:15 U Hyaline Cast (Auto) 1-5 /lpf (0-5) 06/13/20 05:15 U Epithel Cells (Auto) 20-30 /lpf (0-5) H 06/13/20 05:15 Urine Bacteria (Auto) Negative (Negative) 06/13/20 05:15 Diagnostic Findings Chest x-ray as per my interpretation no infiltrate; hilar adenopathy left CT chest read pending EKG as per my interpretation : Rate 130, sinus tachycardia, normal axis, no ischemia
--- NOTE | 2020-06-13 06:44 | CT Scan Report ---
CT chest w con CT DOSE: 1197.85 mGy.cm HISTORY: infected port right side TECHNIQUE: Multiaxial CT images of the chest were performed following the intravenous administration of contrast. A dose lowering technique was utilized adhering to the principles of ALARA. COMPARISON: 04/01/2020 FINDINGS: Central catheter in position. Infiltrative change surrounding the port involving the subcut aneous tissues. An inflammatory process is not excluded. There is no evidence for a well-defined absc ess or collection. Consolidative infiltrate anterior aspect left upper lobe. Scattered small parenchymal nodules which a re similar. No significant mediastinal or hilar adenopathy. IMPRESSION: 1. Central port showing no evidence for infiltrative change surrounding the port within the subcutane ous fat. 2. Inflammatory and/or infectious process is considered. 3. No evidence for abscess or collection. 4. Consolidative infiltrative process anterior aspect left upper lobe. 5. Scattered parenchymal nodules unchanged from the prior exam. ACT 112: Negative or not required by law. The above report was generated using voice recognition software. It may contain grammatical, syntax or spelling errors. Electronically signed by: Nehemiah Ayoub M.D. 06/13/2020 6:43 AM
[2020-06-13] MEDS ORDERED: DEXAMETHASONE SOD PHOSPHATE 4 MG in SYRINGE 0 ML IV STA (06:50)
[2020-06-13] MEDS ORDERED: DEXAMETHASONE SOD INJ 4 MG/ML VIAL ONE (07:06)
[2020-06-13] MEDS ORDERED: OXYCODONE HCL IR 5 MG TAB (IMMEDIATE RELEASE) PO STA (07:20)
--- NOTE | 2020-06-13 07:27 | XRay Report ---
SINGLE VIEW CHEST CLINICAL HISTORY: Sepsis. FINDINGS: An AP, portable, upright chest radiograph is compared to study dated 05/21/2020 and correlat ed with chest CT dated 04/01/2020. The examination is degraded by portable technique and patient rotati on. A right internal jugular central venous infusion port is unchanged in position. The cardiomediast inal silhouette is unremarkable. Emphysema and chronic interstitial thickening are similar to previou s. There is no airspace consolidation typical for pneumonia or large pleural effusion. Scarring/atele ctasis is seen at the lung bases. Foci of the left hilum likely corresponds to lymphadenopathy. No pn eumothorax is seen. The skeletal structures are osteopenic. The bony thorax is grossly intact. IMPRESSION: 1. No acute cardiopulmonary abnormality is identified. 2. False of the left hilum likely corresponds to hilar adenopathy when correlated with the previous c hest CT. ACT 112: Negative or not required by law. Electronically signed by: Jb Mckenzie M.D. 06/13/2020 7:25 AM
[2020-06-13] MEDS ORDERED: NSS + 20MEQ KCL 20 MEQ/1,000 ML BAG IV SCH (07:30)
[2020-06-13] MEDS ORDERED: GLUCOSE 40% GEL 15 GM TUBE PO PRN (08:09)
[2020-06-13] MEDS ORDERED: DEXTROSE 50% 50 ML SYRINGE IV PRN (08:09)
[2020-06-13] MEDS ORDERED: GLUCAGON FOR INJ 1 MG VIAL SQ PRN (08:09)
[2020-06-13] MEDS ORDERED: PROMETHAZINE HCL 12.5 MG in SODIUM CHLORIDE 0.9% 50 ML IV PRN (08:09)
[2020-06-13] MEDS ORDERED: MoRPHine SULFATE 4 MG/ML 1 ML CARP\\VIAL IV PRN ×2 (08:09→09:05)
[2020-06-13] MEDS ORDERED: GLUCOSE 10 TABS/TUBE PO PRN (08:09)
[2020-06-13] MEDS ORDERED: CARBOHYDRATES FOR HYPOGLYCEMIA PO PRN (08:09)
[2020-06-13] MEDS ORDERED: LORazepam 0.5 MG/1 ML VIAL IV PRN (08:09)
[2020-06-13] MEDS ORDERED: ACETAMINOPHEN 325 MG TAB PO PRN (08:09)
[2020-06-13] MEDS ORDERED: OXYCODONE HCL IR 5 MG TAB (IMMEDIATE RELEASE) PO PRN (08:09)
[2020-06-13] MEDS ORDERED: SODIUM CHLORIDE 0.9% 500 ML IV SCH (08:45)
[2020-06-13] MEDS ORDERED: CEFEPIME CONSULT ACTIVE PRN (08:45)
[2020-06-13] MEDS ORDERED: UMECLIDINIUM BROMIDE 62.5MCG/BLISTER 7 PUFFS/INHALER INH SCH (09:00)
[2020-06-13] MEDS ORDERED: CLOPIDOGREL BISULFATE 75 MG TAB PO SCH (09:00)
[2020-06-13] MEDS ORDERED: BuPROPion XL 300 MG TABCR PO SCH (09:00)
[2020-06-13] MEDS ORDERED: INSULIN GLARGINE SOLOSTAR 100 UNITS/ML 3 ML PEN SC SCH (09:00)
[2020-06-13] MEDS ORDERED: ASPIRIN 81 MG ECTAB PO SCH (09:00)
[2020-06-13] MEDS ORDERED: TRAMADOL HCL 50 MG TABLET ONE (09:04)
[2020-06-13] MEDS ORDERED: TRAMADOL HCL 50 MG TABLET PO PRN (09:05)
[2020-06-13] MEDS ORDERED: XOPENEX/ATROVENT 1.25mg/0.5MG NEB COMBO NEB SCH (09:05)
[2020-06-13] MEDS ORDERED: FUROSEMIDE 20 MG in SYRINGE 0 ML IV ONE ×2 (09:11→10:22)
--- NOTE | 2020-06-13 09:11 | Pharmacy Report ---
Pharmacy Abx Initial Consult - Date of Service June 13, 2020 - Pharmacy Dosing Scope Date of Consult: 06/13/2020 Consultation requested by: Dr. Nunez Pharmacy is consulted to initiate Vancomycin + Cefepime IV dosing therapy, order appropriate labs and adjust drug dose/frequency. - Subjective The patient is a 59 year old F admitted on 06/13/20 06:50. - Objective Height: 5 ft 7 in Weight: 139.8 kg Vital Signs (Past 12hrs): Vital Signs Temp Pulse Pulse Resp BP BP BP 06/13/20 09:00 154/109 H 06/13/20 08:12 36.4 C L 117 H 26 H 87/51 L 06/13/20 07:45 113 H 22 114/75 06/13/20 07:41 37.2 C 115 H 21 90/78 L 06/13/20 07:06 115 H 19 91/61 L 06/13/20 07:04 06/13/20 06:45 120 H 21 95/62 L 06/13/20 06:36 37.4 C 06/13/20 06:30 119 H 25 H 94/47 L 06/13/20 06:15 120 H 21 99/46 L 06/13/20 06:00 125 H 17 100/70 06/13/20 05:54 126 H 25 H 88/47 L 06/13/20 05:31 39.5 C H 06/13/20 05:30 128 H 21 121/66 06/13/20 05:16 127 H 24 06/13/20 05:15 126 H 26 H 105/70 06/13/20 05:01 130 H 26 H 136/95 06/13/20 05:00 20 06/13/20 04:45 124 H 33 H 131/78 06/13/20 04:30 130 H 25 H 100/88 06/13/20 04:15 37.8 C H 128 H 18 122/51 L Pulse Ox 06/13/20 09:00 06/13/20 08:12 93 06/13/20 07:45 92 06/13/20 07:41 92 06/13/20 07:06 93 06/13/20 07:04 93 06/13/20 06:45 93 06/13/20 06:36 06/13/20 06:30 93 06/13/20 06:15 92 06/13/20 06:00 93 06/13/20 05:54 93 06/13/20 05:31 06/13/20 05:30 93 06/13/20 05:16 92 06/13/20 05:15 92 06/13/20 05:01 93 06/13/20 05:00 93 06/13/20 04:45 06/13/20 04:30 92 06/13/20 04:15 94 Lab Results (24hrs): Laboratory Tests (24 Hours) 06/13/20 06/13/20 04:54 04:54 WBC 0.35 L* Neut # (Auto) Cancelled Creatinine 0.74 Est Cr Clr Drug Dosing 118.6 Micro Results: 06/13/20 04:35 Gram Stain - Final Chest Wound Culture - Pending 06/13/20 04:42 Aerobic Blood Culture - Pending Blood Anaerobic Blood Culture - Pending 06/13/20 04:54 Aerobic Blood Culture - Pending Blood Anaerobic Blood Culture - Pending - Risk Factors for Resistance * Immunocompromised (chronic steroid therapy, chemotherapy, radiation) * Antimicrobial use within the last 90 days: * Acyclovir + Augmentin - Assessment & Plan Assessment 59 year old F admitted secondary to possible cellulitis surround A port * H/o small cell lung cancer s/p chemoradiation and ongoing steroid use for brain mets * Had A port catheter placed on right IJV by [facility] General Surgery outpatient 3 weeks ago * Has noted some discomfort and drainage at incision site * 24-hr Tmax 39.5 C. Tachycardic. Hypotensive. WBCs 350, no ANC ordered. Renal fxn stable. Lactate elevated 2.6, repeat 2.5. * Received loading doses of Vancomycin and Cefepime in ED Plan Vancomycin + Cefepime for treatment of cellulitis surrounding A port Vancomycin IV * Estimated PK Parameters: Dimitrios 0.103 hr-1, t1/2 ~7 hrs * Loading dose: 2750 mg (20 mg/kg) * Maintenance dose: 1500 mg IV (11 mg/kg) every 10 hours * Goal trough level: ~ 15 mcg/mL * Trough level ordered for tomorrow at 1130 prior to the 3rd maintenance dose to ensure patient is not sub-/supra-therapeutic * A less than traditional dose and extended dosing interval have been selected due to likelihood of drug accumulation in obese patient. Cefepime * 2 g IV every 8 hours * Appropriate per renal function and indication Pharmacy will continue to follow and will adjust dose/frequency as necessary. Thank you.
[2020-06-13] MEDS ORDERED: PIPERACILL/TAZOBAC CONSULT ACTIVE PRN (09:15)
[2020-06-13] MEDS ORDERED: PIPERACILLIN/TAZOBACTAM 4.5 GM in DEXTROSE 5% 100 ML IV ONE (09:20)
--- NOTE | 2020-06-13 09:49 | XRay Report ---
XR chest 1V portable CLINICAL HISTORY: r/o volume overload, chf dyspnea COMPARISON STUDY: 06/13/2020 FINDINGS: Unchanged fullness left hilum. Lungs otherwise remain clear. Diaphragms are smooth. IMPRESSION: No significant change from the prior study. Unchanged fullness left hilum. ACT 112: Negative or not required by law. The above report was generated using voice recognition software. It may contain grammatical, syntax or spelling errors. Electronically signed by: Nehemiah Ayoub M.D. 06/13/2020 9:48 AM
[2020-06-13] MEDS: ACYCLOVIR 400 MG TAB PO SCH ×5 (09:52→22:43)
[2020-06-13] MEDS: dexAMETHasone 4 MG TAB PO SCH ×2 (09:52→20:59)
[2020-06-13] MEDS: INSULIN ASPART 100 UNITS/ML 3 ML PEN SC SCH ×4 (09:56→21:26)
[2020-06-13] MEDS: IPRATROPIUM BROMIDE NEB SOLN 0.02% 2.5 ML VIAL INH SCH ×3 (10:08→20:03)
[2020-06-13] MEDS: LEVALBUTEROL 1.25MG/0.5ML NEB INH SCH ×3 (10:08→20:03)
[2020-06-13] MEDS ORDERED: STAT IV Infusion **Titration per Protocol STA ×2 (11:50→19:13)
[2020-06-13] MEDS ORDERED: CEFEPIME 2,000 MG in SYRINGE 7.5 ML IV SCH (12:00)
[2020-06-13] MEDS ORDERED: LIDOCAINE HCL 1% 20 ML VIAL ONE (12:38)
[2020-06-13] MEDS: VASOPRESSIN 20 UNITS in 0.9 % SODIUM CHLORIDE 100 ML IV SCH ×2 (12:38→21:01)
[2020-06-13] MEDS: NOREPINEPHRINE BIT INJ 8 MG in DEXTROSE 5% 500 ML IV SCH ×3 (12:42→23:45)
[2020-06-13] MEDS ORDERED: BACITRACIN OINT 15 GM TUBE ONE (12:52)
[2020-06-13] MEDS ORDERED: BACITRACIN OINT 0.9 GM PKT EXT PRN (12:52)
--- NOTE | 2020-06-13 13:10 | Surgery Consultation ---
Date of Consultation June 13, 2020 Assessment & Plan (1) Severe sepsis: pt is a 59 year-old female who admitted to hospital for sepsis, infected port, IMP: sepsis, infected port Plan, I recommend to remove port at bedside, D/W benefits, risks and alternatives of the surgery with pt, the risks - infection, bleeding sepsis, multiple organs failure, pt understood, she agrees with the surgery at bedside, she signed consent, I answered all questions, under local anesthesia, I remove the port easily, some clear fluid collection at port site, wound culture and tip of catheter sent for culture, packing the wound, pt tolerated the procedure well, will F/U, D/W ICU attending, (2) Sepsis: (3) Infected venous access port: History of Present Illness Attending Physician: Shayne Willis MD Chief Complaint: Fever, chills, infected Aport site Primary Care Provider: Keila Freire DO History obtained from patient and records. Medical history significant for small cell lung cancer status post chemoradiati on ongoing steroid Rx, CAD status post stent, hypertension, DM 2 on oral medications, past tobacco abuse. Last 2011 under Cardiology service for STEMI status post RCA stent placement. Patient diagnosed to have extensive small cell lung cancer with documented brain mets on MRI last April 2020. Underwent chemoradiation. Ongoing steroid taper as per patient. 3 weeks ago patient underwent tunneled Aport catheter placement on the right IJV by [facility] outpatient. Last week patient noted some discomfort and drainage on incision site. Patient seen at [facility] surgeon's office 2 days ago. Wound culture sent as per records. Topical bacitracin and Augmentin course prescribed by provider. Patient instructed to follow-up at the ER if with worsening. Patient woke up early this morning with fever, chills and pain on R port site. Achy left-sided chest discomfort nonradiating separate from a port site. No unusual cough, headache, abdominal pain/diarrhea/dysuria symptoms. At the ER, patient received vancomycin and cefepime for sepsis. I ( Yeyo Beltran MD) got a call for consult infected port, I reviewed pt's H/P, labs, CXR with pt , pt had port insertion on right internal jugular vein on 05/21/2020, pt had 3 times chemo injection through the port, the port working fine, last use it about 6 days ago, I saw pt in my clinic 2 days ago, minimal drainage form port incision site, at that time pt denies fever, no pain on port site, started Po augmentin 2 days ago, follow up today, pt develops fever chill, pt come to ER today, 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 Allergies Allergy/AdvReac Type Severity Reaction Status Date / Time LETTY Inhibitors Allergy Unknown Unknown Verified 06/13/20 05:02 lisinopril Allergy Unknown Unknown Verified 06/13/20 05:02 tree and shrub pollen Allergy Nasal Verified 06/13/20 05:02 Discharge Home Medications Home Medications Medication Instructions Recorded Confirmed Type acyclovir 400 mg tablet 400 mg PO UD PRN tab 06/19/19 06/13/20 History nitroglycerin 0.4 mg sublingual 0.4 mg SL Q5M PRN #100 tab 06/19/19 06/13/20 History tablet albuterol sulfate 90 mcg/actuation 1 puffs INH Q6H PRN #18 gm 07/20/19 06/13/20 Rx aerosol inhaler acetaminophen [Tylenol Arthritis 650 mg PO Q12H PRN 04/15/20 06/13/20 History Pain] aspirin 81 mg PO QAM 04/15/20 06/13/20 History bupropion HCl 300 mg 24 hr tablet, 300 mg PO QAM 05/02/20 06/13/20 History extended release cetirizine 10 mg capsule 10 mg PO DAILY PRN cap 05/02/20 06/13/20 History cholecalciferol (vitamin D3) 25 25 mcg PO QAM 05/02/20 06/13/20 History mcg (1,000 unit) capsule metformin 500 mg tablet,extended 500 mg PO HS tab 05/02/20 06/13/20 History release 24 hr metoprolol succinate 50 mg 50 mg PO HS tab 05/02/20 06/13/20 History tablet,extended release 24 hr ondansetron HCl 8 mg tablet 8 mg PO Q8H PRN 05/02/20 06/13/20 History prochlorperazine maleate 10 mg 10 mg PO Q6H PRN 05/02/20 06/13/20 History tablet tiotropium bromide 2.5 2 puffs INH QAM 05/02/20 06/13/20 History mcg/actuation mist for inhalation dexamethasone 4 mg tablet 4 mg PO TID #60 tab 05/20/20 06/13/20 Rx oxycodone-acetaminophen [Percocet] 1 tab PO Q6H PRN #10 tab 05/21/20 06/13/20 Rx atorvastatin 80 mg tablet 80 mg PO HS #90 tab 05/29/20 06/13/20 Rx clopidogrel 75 mg tablet 75 mg PO QAM #90 tab 05/29/20 06/13/20 Rx amoxicillin-pot clavulanate 1 tab PO BID 06/13/20 06/13/20 History furosemide 20 mg PO DAILY 06/13/20 06/13/20 History losartan 50 mg PO DAILY 06/13/20 06/13/20 History Past Med/Surg History Medical History CAD (coronary artery disease) S/p stent 2011 Diabetes mellitus, type 2 prediabetic Family history of reaction to anesthesia sister is hard to awaken Hypertension Lung mass small cell. diagnosed dec 2019 On home oxygen therapy 02 at HS Osteoarthritis Restless leg syndrome Status post myocardial infarction of inferior wall (01/08/12) december 2011 Surgical History History of bronchoscopy 04/24/2020 History of laparoscopic cholecystectomy Hx of right coronary artery stent placement mid RCA bare metal 01/08/2012 [place] teeth extracted Family History Mother Coronary heart disease Diabetes Father , age 61 CHF Coronary heart disease Sister , age 20 MVA No problems noted. Sister No problems noted. Social History Smoking Status: Former smoker Tobacco Type: Cigarettes Age Started Using Tobacco: 15; Age Quit Using Tobacco: 59; packs per day: 1; Second Hand Exposure: No; Do You Dip or Chew Tobacco: No; Tobacco Cessation Education Requested by Patient: No Hx Alcohol Use: No Hx Substance Use: Yes Last Used Substance: Hours (ago) Last Used Substance Other:: uses for RLS. 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 Other Information That Helps Us Care for You: No Feels Safe at Home: Yes Safety Concerns: Feels Safe At This Time Childhood Exposure to Second-Hand Smoke: Yes caffeine: No Dental Care, Regularly: No Physical Activity Frequency: Does not Exercise Seatbelt Use: always Sunscreen Use: No Review of Systems Review of Systems: As per HPI, all 10 systems reviewed, all other ROS negative Allergies Allergy/AdvReac Type Severity Reaction Status Date / Time LETTY Inhibitors Allergy Unknown Unknown Verified 06/13/20 05:02 lisinopril Allergy Unknown Unknown Verified 06/13/20 05:02 tree and shrub pollen Allergy Nasal Verified 06/13/20 05:02 Discharge Home Medications Home Medications Medication Instructions Recorded Confirmed Type acyclovir 400 mg tablet 400 mg PO UD PRN tab 06/19/19 06/13/20 History nitroglycerin 0.4 mg sublingual 0.4 mg SL Q5M PRN #100 tab 06/19/19 06/13/20 History tablet albuterol sulfate 90 mcg/actuation 1 puffs INH Q6H PRN #18 gm 07/20/19 06/13/20 Rx aerosol inhaler acetaminophen [Tylenol Arthritis 650 mg PO Q12H PRN 04/15/20 06/13/20 History Pain] aspirin 81 mg PO QAM 04/15/20 06/13/20 History bupropion HCl 300 mg 24 hr tablet, 300 mg PO QAM 05/02/20 06/13/20 History extended release cetirizine 10 mg capsule 10 mg PO DAILY PRN cap 05/02/20 06/13/20 History cholecalciferol (vitamin D3) 25 25 mcg PO QAM 05/02/20 06/13/20 History mcg (1,000 unit) capsule metformin 500 mg tablet,extended 500 mg PO HS tab 05/02/20 06/13/20 History release 24 hr metoprolol succinate 50 mg 50 mg PO HS tab 05/02/20 06/13/20 History tablet,extended release 24 hr ondansetron HCl 8 mg tablet 8 mg PO Q8H PRN 05/02/20 06/13/20 History prochlorperazine maleate 10 mg 10 mg PO Q6H PRN 05/02/20 06/13/20 History tablet tiotropium bromide 2.5 2 puffs INH QAM 05/02/20 06/13/20 History mcg/actuation mist for inhalation dexamethasone 4 mg tablet 4 mg PO TID #60 tab 05/20/20 06/13/20 Rx oxycodone-acetaminophen [Percocet] 1 tab PO Q6H PRN #10 tab 05/21/20 06/13/20 Rx atorvastatin 80 mg tablet 80 mg PO HS #90 tab 05/29/20 06/13/20 Rx clopidogrel 75 mg tablet 75 mg PO QAM #90 tab 05/29/20 06/13/20 Rx amoxicillin-pot clavulanate 1 tab PO BID 06/13/20 06/13/20 History furosemide 20 mg PO DAILY 06/13/20 06/13/20 History losartan 50 mg PO DAILY 06/13/20 06/13/20 History Patient History Medical History CAD (coronary artery disease) S/p stent 2011 Diabetes mellitus, type 2 prediabetic Family history of reaction to anesthesia sister is hard to awaken Hypertension Lung mass small cell. diagnosed dec 2019 On home oxygen therapy 02 at HS Osteoarthritis Restless leg syndrome Status post myocardial infarction of inferior wall (01/08/12) december 2011 Surgical History History of bronchoscopy 04/24/2020 History of laparoscopic cholecystectomy Hx of right coronary artery stent placement mid RCA bare metal 01/08/2012 [place] teeth extracted Family History Mother Coronary heart disease Diabetes Father , age 61 CHF Coronary heart disease Sister , age 20 MVA No problems noted. Sister No problems noted. Social History Smoking Status: Former smoker Tobacco Type: Cigarettes Age Started Using Tobacco: 15; Age Quit Using Tobacco: 59; packs per day: 1; Second Hand Exposure: No; Do You Dip or Chew Tobacco: No; Tobacco Cessation Education Requested by Patient: No Hx Alcohol Use: No Hx Substance Use: Yes Last Used Substance: Hours (ago) Last Used Substance Other:: uses for RLS. 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 Other Information That Helps Us Care for You: No Feels Safe at Home: Yes Safety Concerns: Feels Safe At This Time Childhood Exposure to Second-Hand Smoke: Yes caffeine: No Dental Care, Regularly: No Physical Activity Frequency: Does not Exercise Seatbelt Use: always Sunscreen Use: No Review of Systems Review of Systems: All systems reviewed & are unremarkable except as noted in HPI & below Constitutional: as per Subjective / HPI Eyes: as per Subjective / HPI Ear, Nose, Mouth, Throat: as per Subjective / HPI Respiratory: as per Subjective / HPI lung cancer metastatic to brain Cardiovascular: as per Subjective / HPI Additional Comments: CAD Gastrointestinal: as per Subjective / HPI Genitourinary: as per Subjective / HPI Musculoskeletal: as per Subjective / HPI Integumentary: as per Subjective / HPI Neurologic: as per Subjective / HPI Psychiatric: as per Subjective / HPI Hematologic / Lymphatic: as per Subjective / HPI Physical Exam Constitutional: well developed, well nourished and + ill appearing Eyes: PERRL, conjunctivae normal, anicteric sclerae ENMT: external ear and nose normal, oropharynx normal Neck: trachea midline, no thyromegaly Respiratory: normal respiratory effort, lungs clear to auscultation normal respiratory effort some redness at right upper chest wall, no drainage from port incision site, no tenderness, Cardiovascular: RRR, no murmur, no edema Rate/Rhythm: regular rate and regular rhythm Gastrointestinal (Abdomen): normal bowel sounds, soft, nontender, no hepatosplenomegaly Musculoskeletal: no cyanosis or clubbing, extremities motor strength 5/5 Skin: no rashes, warm and dry Neurologic: patellar DTR's 2+ bilat, sensation intact Psychiatric: Orientation: alert and oriented x 3 Results & Data ([facility]) Vital Signs (Past 12 Hours) Vital Signs Temp Pulse Pulse Pulse Pulse Resp BP 08/13/20 12:33 133 H 32 H 06/13/20 11:01 36.6 C 120 H 06/13/20 09:27 110 H 18 06/13/20 09:00 06/13/20 08:12 36.4 C L 117 H 26 H 06/13/20 07:45 113 H 22 114/75 06/13/20 07:41 37.2 C 115 H 21 90/78 L 06/13/20 07:06 115 H 19 91/61 L 06/13/20 07:04 06/13/20 06:45 120 H 21 95/62 L 06/13/20 06:36 37.4 C 06/13/20 06:30 119 H 25 H 94/47 L 06/13/20 06:15 120 H 21 99/46 L 06/13/20 06:00 125 H 17 100/70 06/13/20 05:54 126 H 25 H 88/47 L 06/13/20 05:31 39.5 C H 06/13/20 05:30 128 H 21 121/66 06/13/20 05:16 127 H 24 06/13/20 05:15 126 H 26 H 105/70 06/13/20 05:01 130 H 26 H 136/95 06/13/20 05:00 20 06/13/20 04:45 124 H 33 H 131/78 06/13/20 04:30 130 H 25 H 100/88 06/13/20 04:15 37.8 C H 128 H 18 122/51 L BP BP Pulse Ox 06/13/20 12:33 98 06/13/20 11:01 90 06/13/20 09:27 98 06/13/20 09:00 154/109 H 06/13/20 08:12 87/51 L 93 06/13/20 07:45 92 06/13/20 07:41 92 06/13/20 07:06 93 06/13/20 07:04 93 06/13/20 06:45 93 06/13/20 06:36 06/13/20 06:30 93 06/13/20 06:15 92 06/13/20 06:00 93 06/13/20 05:54 93 06/13/20 05:31 06/13/20 05:30 93 06/13/20 05:16 92 06/13/20 05:15 92 06/13/20 05:01 93 06/13/20 05:00 93 06/13/20 04:45 06/13/20 04:30 06/13/20 04:15 94 Laboratory Results Abnormal lab results 06/13/20 06/13/20 06/13/20 Range/Units 04:54 04:54 04:54 WBC 0.35 L* (4.8-10.8) K/uL RBC 4.00 L (4.2-5.4) M/uL Hct 36.7 L (37-47) % RDW Std Deviation 51.5 H (36.4-46.3) fL RDW Coeff of Placido 15.2 H (11.5-14.5) % Plt Count 78 L (130-400) K/uL Platelet Estimate Decreased L (Normal) BUN 21 H (7-18) mg/dl BUN/Creatinine Ratio 27.8 H (10-20) Glucose 123 H (70-99) mg/dl POC Glucose (70-99) mg/dl Lactate 2.6 H* (0.4-2.0) mmol/L Calcium 8.3 L (8.5-10.1) mg/dl Magnesium 1.6 L (1.8-2.4) mg/dl C-Reactive Protein (0-0.29) mg/dl Total Protein 6.1 L (6.4-8.2) gm/dl Albumin 2.6 L (3.4-5.0) gm/dl Albumin/Globulin Ratio 0.7 L (0.9-2) Urine Blood (Negative) Urine RBC (Auto) (0-4) /hpf U Epithel Cells (Auto) (0-5) /lpf 06/13/20 06/13/20 06/13/20 Range/Units 05:15 06:57 08:12 WBC (4.8-10.8) K/uL RBC (4.2-5.4) M/uL Hct (37-47) % RDW Std Deviation (36.4-46.3) fL RDW Coeff of Placido (11.5-14.5) % Plt Count (130-400) K/uL Platelet Estimate (Normal) BUN (7-18) mg/dl BUN/Creatinine Ratio (10-20) Glucose (70-99) mg/dl POC Glucose 120 H (70-99) mg/dl Lactate 2.5 H* (0.4-2.0) mmol/L Calcium (8.5-10.1) mg/dl Magnesium (1.8-2.4) mg/dl C-Reactive Protein (0-0.29) mg/dl Total Protein (6.4-8.2) gm/dl Albumin (3.4-5.0) gm/dl Albumin/Globulin Ratio (0.9-2) Urine Blood Trace H (Negative) Urine RBC (Auto) 5-10 H (0-4) /hpf U Epithel Cells (Auto) 20-30 H (0-5) /lpf 06/13/20 06/13/20 Range/Units 11:21 12:30 WBC (4.8-10.8) K/uL RBC (4.2-5.4) M/uL Hct (37-47) % RDW Std Deviation (36.4-46.3) fL RDW Coeff of Placido (11.5-14.5) % Plt Count (130-400) K/uL Platelet Estimate (Normal) BUN (7-18) mg/dl BUN/Creatinine Ratio (10-20) Glucose (70-99) mg/dl POC Glucose 227 H (70-99) mg/dl Lactate (0.4-2.0) mmol/L Calcium (8.5-10.1) mg/dl Magnesium (1.8-2.4) mg/dl C-Reactive Protein 10.00 H (0-0.29) mg/dl Total Protein (6.4-8.2) gm/dl Albumin (3.4-5.0) gm/dl Albumin/Globulin Ratio (0.9-2) Urine Blood (Negative) Urine RBC (Auto) (0-4) /hpf U Epithel Cells (Auto) (0-5) /lpf Diagnostic Findings XR chest 1V portable CLINICAL HISTORY: r/o volume overload, chf dyspnea COMPARISON STUDY: 06/13/2020 FINDINGS: Unchanged fullness left hilum. Lungs otherwise remain clear. Diaphragms are smooth. IMPRESSION: No significant change from the prior study. Unchanged fullness left hilum. ACT 112: Negative or not required by law. The above report was generated using voice recognition software. It may contain grammatical, syntax or spelling errors. (1) Sepsis Sepsis acute organ dysfunction status: without acute organ dysfunction Sepsis type: sepsis due to unspecified organism Qualified Code(s): A41.9 - Sepsis, unspecified organism (2) Infected venous access port Encounter type: initial encounter Qualified Code(s): T80.219A - Unspecified infection due to central venous catheter, initial encounter
--- NOTE | 2020-06-13 13:41 | Operative Report (OR) ---
DATE OF OPERATION: 06/13/2020 PREOPERATIVE DIAGNOSIS: Infected port. POSTOPERATIVE DIAGNOSIS: Infected port. OPERATION: Removal of port at the bedside. SURGEON: Yeyo Beltran MD. ANESTHESIA: Local. ESTIMATED BLOOD LOSS: About 1 mL. FINDINGS: Infected port. COMPLICATIONS: None. INDICATIONS FOR THE PROCEDURE: This is a 59-year-old female who had a port inserted about 3 weeks ago. After the port insertion, the patient was doing fine. The patient received 3 times chemotherapy through the port, working fine probably at that time. The patient last time used the port about 1 week ago and after that, the patient developed some drainage about a couple of days ago from the incision site and the patient came to the hospital with fever, chills and diagnosed with infected port. I recommended to remove the port at the bedside right away. I did talk to the patient about the benefit, the risk, alternate procedure. I indicated the risks may include but not limited to such as bleeding, infection, sepsis, multiple organ failure, and even . The patient understands that; she signed informed consent and I answered all questions. DETAILS OF PROCEDURE: The patent's right upper chest wall was prepped and draped in routine sterile fashion at ICU bedside and after time-out, I injected local anesthesia by using 1% lidocaine infiltrated around the incision site on the port site. Then, we used a 15 blade to open the skin using the old incision. There was some clear fluid coming out. We sent the clear fluid for wound culture and then we removed the 3 sutures fixed on the chest wall. Once all sutures removed, I easily pulled out the port catheter. The tip of the catheter was sent to culture also. Hemostasis was obtained. I used Kerlix for packing the wound and I put the dressing on. The patient tolerated the procedure well. All the instrument, needle and sponge count correct x1, and the patient is in stable condition.continue IV antibiotic. I attest to the content of the Intraoperative Record and any orders documented therein. Any exceptions are noted below. MTDD
--- NOTE | 2020-06-13 13:53 | Post Operative Brief Note ---
Immediate Post Op Note v1 Date of Surgery June 13, 2020 Pre & Post Diagnosis pre-op diagnosis: sepsis, infected port post-op diagnosis: sepsis, infected port I identified the patient and participated in the time-out.: Yes Procedure remove port at bedside Surgeon Yeyo Beltran MD Redevelopment Manager none Estimated Blood Loss 1 Findings Consistent with Post-Op Diagnosis infected port Fluids 100ml Specimens wound culture, and tip of catheter sent for culture Drains Other (packing the wound) Anesthesia Type Local Complications none Disposition Accompanied Patient To Recovery: Yes Disposition: Surgical ICU Overlapping Procedure I was immediately available: during the entire case.
[2020-06-13] MEDS ORDERED: PERFLUTREN LIPID MICROSPHERE (DEFINITY) IV ONE (14:26)
--- NOTE | 2020-06-13 14:33 | Critical Care Consultation ---
Date of Consultation June 13, 2020 Assessment & Plan (1) Severe sepsis: Reason Critically Ill: 59 yo F PMHx CAD s/p stent, HTN, HLD, lung ca with metastasis to the brain s/p chemoradiation and R port placementon R IJ 3 weeks ago who presented to the hospital with fevers, chills, and port site pain and who was admitted for severe sepsis. Transferred 06/13 to ICU for acute hypoxemic respiratory failure. Neuro - [facility] ICU: NEGATIVE Sedation: none Analgesia: Tramadol 50mg PO q4h, oxycodone q4h PRN pain. History of Brain Metastasis: - With recent MRI April 2020 showing multiple scattered enhancing lesions throughout the cerebrum and cerebellum suggestive of multifocal metastatic disease. - Has been on Decadron for several weeks. - No AMS this admission. - Continue Decadron 4mg IV BID. Cardiac - Hx CAD and HTN: - With intermittent localized chest pain. - EKG without ST/T wave changes. - Troponin negative x2. - Pain is likely 2/2 port infection. - Continue baby aspirin, Plavix. - Holding Lasix, metoprolol, losartan in the setting of septic shock. - Echo performed today, read pending. Sinus Tachycardia and Hypotension: - Currently on norepinephrine and vasopressin, BP now 100s/50-60s. - Continue pressure support. Respiratory - Acute Hypoxemic Respiratory Failure: - On admission with intermittent tachypnea but initially no increased oxygen requirement, however later this AM with acute respiratory failure requiring BiPAP for respiratory support. - CXR showed progressive left perihilar consolidative airspace opacity. - Likely 2/2 acute pneumonia in patient with lung carcinoma. - Still with tachypnea and increased work of breathing despite BiPAP. - Low threshold for intubation if patients respiratory status continues to decline. - Continue dexamethasone 4mg IV BID, ipratropium bromide q6h, levalbuterol q6h. GI - - No diet at this time given respiratory effort. - GI ppx Protonix 40mg IV daily. RENAL/LYTES - No signs of acute kidney injury. - No significant electrolyte derangements. - Replace lytes as needed. - - No active concerns. - White placed for strict measurement of Is/Os. ENDO - - No history of thyroid disease, TSH normal this admission. DM2: - At home is on metformin 500mg daily. - Currently on Dexamethasone 4mg BID. - ICU hyperglycemia protocol with pharmacy consult for hyperglycemia management. HEME - - Stable H/H. - CBC daily. ID Septic Shock with Fever: - On admission with hypotension, tachycardia, elevated lactate, leukopenia. - Also with elevated CRP, procalcitonin suggestive of bacterial infection. - With fever x2 today to Tmax 39.5C this AM. - Shock likely 2/2 infected port, General Surgery aware and patient had port removed at bedside this afternoon. - BCx x2 ordered; patient started on vancomycin/Zosyn. - Echo performed, read pending. - Currently on vasopressin/norepinephrine for pressure support. Goal MAP >65. - Tylenol 1000mg IV q8h PRN fever. - Daily CBC. - ID consulted and appreciate recommendations. INTEGUMENTARY - - With several bruises to abdomen, likely due to Heparin injections. HSV Infection of face: - Continue acyclovir. LINES/IV ACCESS - - PIVs intact. - L IJ central line in place. - White in place. DVT PROPHYLAXIS - - SCDs. CODE STATUS - Full code. Thank you for allowing us to be part of this patient's care. Please refer to Dr. Frye's documentation for any further recommendations. (2) Infected venous access port: (3) Hypertension: (4) CAD (coronary artery disease): (5) Lung cancer metastatic to brain: Supervising Physician Co-Signing Physician Notes Emili uDpont was the resident-physician during care of patient. I separately evaluated patient for [place] portions of the history and the exam. I was present during the critical portion of medical decision making, and I discussed the case with the resident. I generally agree with the findings and plan except for any additions/exceptions noted. Patient was seen on the floor initially by me but she was found to be tachypneic tachycardic and hypertensive on BiPAP. During that time I asked the patient if needed intubation and put a central line whether she would be okay with it and she said yes. On coming to the ICU her blood pressure was still on the lower side we put a left-sided central line and started her on vasopressor support. Patient is on broad-spectrum antibiotics. Given that she is pancytopenic will also start the patient on levofloxacin for double pseudomonal coverage. The source of infection is most likely Port-A-Cath. Given the requirement of 2 pressors and now patient requiring intubation in a patient who has stage IV metastatic cancer Prognosis is guarded. CT chest from admission so shows left upper lobe consolidation right at the site where she had nodule. It seems it is connecting with the pleura and this might be the reason the patient is complaining of left-sided chest pain. Bedside Ultrasound: Lung: Positive B-lines appreciated left anterior and posterior, no B-lines right side, no pleural effusion appreciated Heart: Hyperdynamic left heart, difficult study, IVC not clearly visualized because of body habitus Abdomen: No ascites I have personally spent 67 minutes of critical care time in the direct management of this patient. This is a life/limb threatening event. This includes time spent evaluating patient, direct bedside care, chart review, placing orders, interpretation of diagnostic studies, discussion with consultants, patient, and/or family members regarding treatment decisions, as well as other required patient management activities. This time is exclusive of all separately billable procedures, and teaching time and separate from and in addition to any other critical care service time. History of Present Illness Reason for Consultation: acute hypoxemic respiratory failure, septic shock Requesting Physician: Shayne Willis MD Attending Physician: Shayne Willis MD History of Present Illness Reason Critically Ill: 59 yo F PMHx CAD s/p stent, HTN, HLD, lung ca with metastasis to the brain s/p chemoradiation and R port placementon R IJ 3 weeks ago who presented to the hospital with fevers, chills, and port site pain. Was found to be hypotensive, tachycardic, leukopenic, and with lactic adicosis. Was started on fluids, BCx obtained, and Vanc/Zosyn started. This morning patient started to develop worsening respiratory status, requiring BiPAP to maintain adequate oxygenation. She also started to have worsening hypotension. She was transferred 06/13 to ICU for acute hypoxemic respiratory failure and septic shock requiring pressors. In the room patient is alert, calm but tachypneic, Denies subjective fevers or chills, cardiac chest pain, nausea or vomiting, headache or dizziness. Endorses SOB. Endorses chest wall pain that she believes is making her breathing worse. Allergies Allergy/AdvReac Type Severity Reaction Status Date / Time LETTY Inhibitors Allergy Unknown Unknown Verified 06/13/20 05:02 lisinopril Allergy Unknown Unknown Verified 06/13/20 05:02 tree and shrub pollen Allergy Nasal Verified 06/13/20 05:02 Discharge Home Medications Home Medications Medication Instructions Recorded Confirmed Type acyclovir 400 mg tablet 400 mg PO UD PRN tab 06/19/19 06/13/20 History nitroglycerin 0.4 mg sublingual 0.4 mg SL Q5M PRN #100 tab 06/19/19 06/13/20 History tablet albuterol sulfate 90 mcg/actuation 1 puffs INH Q6H PRN #18 gm 07/20/19 06/13/20 Rx aerosol inhaler acetaminophen [Tylenol Arthritis 650 mg PO Q12H PRN 04/15/20 06/13/20 History Pain] aspirin 81 mg PO QAM 04/15/20 06/13/20 History bupropion HCl 300 mg 24 hr tablet, 300 mg PO QAM 05/02/20 06/13/20 History extended release cetirizine 10 mg capsule 10 mg PO DAILY PRN cap 05/02/20 06/13/20 History cholecalciferol (vitamin D3) 25 25 mcg PO QAM 05/02/20 06/13/20 History mcg (1,000 unit) capsule metformin 500 mg tablet,extended 500 mg PO HS tab 05/02/20 06/13/20 History release 24 hr metoprolol succinate 50 mg 50 mg PO HS tab 05/02/20 06/13/20 History tablet,extended release 24 hr ondansetron HCl 8 mg tablet 8 mg PO Q8H PRN 05/02/20 06/13/20 History prochlorperazine maleate 10 mg 10 mg PO Q6H PRN 05/02/20 06/13/20 History tablet tiotropium bromide 2.5 2 puffs INH QAM 05/02/20 06/13/20 History mcg/actuation mist for inhalation dexamethasone 4 mg tablet 4 mg PO TID #60 tab 05/20/20 06/13/20 Rx oxycodone-acetaminophen [Percocet] 1 tab PO Q6H PRN #10 tab 05/21/20 06/13/20 Rx atorvastatin 80 mg tablet 80 mg PO HS #90 tab 05/29/20 06/13/20 Rx clopidogrel 75 mg tablet 75 mg PO QAM #90 tab 05/29/20 06/13/20 Rx amoxicillin-pot clavulanate 1 tab PO BID 06/13/20 06/13/20 History furosemide 20 mg PO DAILY 06/13/20 06/13/20 History losartan 50 mg PO DAILY 06/13/20 06/13/20 History Patient History Medical History CAD (coronary artery disease) S/p stent 2011 Diabetes mellitus, type 2 prediabetic Family history of reaction to anesthesia sister is hard to awaken Hypertension Lung mass small cell. diagnosed dec 2019 On home oxygen therapy 02 at HS Osteoarthritis Restless leg syndrome Status post myocardial infarction of inferior wall (01/08/12) december 2011 Surgical History History of bronchoscopy 04/24/2020 History of laparoscopic cholecystectomy Hx of right coronary artery stent placement mid RCA bare metal 01/08/2012 [place] teeth extracted Family History Mother Coronary heart disease Diabetes Father , age 61 CHF Coronary heart disease Sister , age 20 MVA No problems noted. Sister No problems noted. Social History Smoking Status: Former smoker Tobacco Type: Cigarettes Age Started Using Tobacco: 15; Age Quit Using Tobacco: 59; packs per day: 1; Second Hand Exposure: No; Do You Dip or Chew Tobacco: No; Tobacco Cessation Education Requested by Patient: No Hx Alcohol Use: No Hx Substance Use: Yes Last Used Substance: Hours (ago) Last Used Substance Other:: uses for RLS. 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 Other Information That Helps Us Care for You: No Feels Safe at Home: Yes Safety Concerns: Feels Safe At This Time Childhood Exposure to Second-Hand Smoke: Yes caffeine: No Dental Care, Regularly: No Physical Activity Frequency: Does not Exercise Seatbelt Use: always Sunscreen Use: No Review of Systems Review of Systems: All systems reviewed & are unremarkable except as noted in HPI & below Constitutional: no fever and no chills Respiratory: + dyspnea; no cough and no wheezing Cardiovascular: + chest pain (chest wall pain, does not radiate); no syncope and no edema Gastrointestinal: no abdominal pain, no nausea and no vomiting Genitourinary: no dysuria and no hematuria Physical Exam Constitutional: well developed, + ill appearing and + obese Eyes: PERRL, conjunctivae normal, anicteric sclerae ENMT: external ear and nose normal, oropharynx normal Neck: normal visual inspection Respiratory: no cough Auscultation: + diminished lung sounds (diffuse) and + crackles (bilateral bases) tachypneic to low 30s Cardiovascular: Rate/Rhythm: regular rate and + tachycardic Heart Sounds: no murmur Extremities: no edema Cardiac monitoring shows sinus tachycardia to 120s Chest (Breasts): Chest: + vascular access device or port (some redness at around port site, no purulent drainage noted) Gastrointestinal (Abdomen): Inspection/Auscultation: normal bowel sounds Percussion/Palpation: abdomen soft; abdomen nontender and no guarding Musculoskeletal: Extremities: no cyanosis and no clubbing Skin: erythema of R chest wall as above Neurologic: moves all extremities; no focal motor deficits Speech / Cognition: normal speech Motor/Sensory: no tremor Psychiatric: A+Ox3, euthymic affect Genitourinary: White draining clear yellow urine Results & Data Results & Data ([facility]) Vital Signs (Past 12 Hours) Vital Signs Temp Pulse Pulse Pulse Pulse Resp BP 06/13/20 13:29 120 H 30 H 06/13/20 13:09 129 H 33 H 78/41 L 06/13/20 13:01 132 H 33 H 96/41 L 06/13/20 12:34 135 H 36 H 88/57 L 06/13/20 12:33 133 H 32 H 06/13/20 12:00 135 H 7 L 103/52 L 06/13/20 11:41 126 H 29 H 96/55 L 06/13/20 11:39 36.8 C 126 H 37 H 06/13/20 11:01 36.6 C 120 H 06/13/20 09:27 110 H 18 06/13/20 09:00 06/13/20 08:12 36.4 C L 117 H 26 H 06/13/20 07:45 113 H 22 114/75 06/13/20 07:41 37.2 C 115 H 21 90/78 L 06/13/20 07:06 115 H 19 91/61 L 06/13/20 07:04 06/13/20 06:45 120 H 21 95/62 L 06/13/20 06:36 37.4 C 06/13/20 06:30 119 H 25 H 94/47 L 06/13/20 06:15 120 H 21 99/46 L 06/13/20 06:00 125 H 17 100/70 06/13/20 05:54 126 H 25 H 88/47 L 06/13/20 05:31 39.5 C H 06/13/20 05:30 128 H 21 121/66 06/13/20 05:16 127 H 24 06/13/20 05:15 126 H 26 H 105/70 06/13/20 05:01 130 H 26 H 136/95 06/13/20 05:00 20 06/13/20 04:45 124 H 33 H 131/78 06/13/20 04:30 130 H 25 H 100/88 06/13/20 04:15 37.8 C H 128 H 18 122/51 L BP BP Pulse Ox 06/13/20 13:29 96 06/13/20 13:09 92 06/13/20 13:01 94 06/13/20 12:34 97 06/13/20 12:33 98 06/13/20 12:00 92 06/13/20 11:41 94 06/13/20 11:39 92 06/13/20 11:01 90 06/13/20 09:27 98 06/13/20 09:00 154/109 H 06/13/20 08:12 87/51 L 93 06/13/20 07:45 92 06/13/20 07:41 92 06/13/20 07:06 93 06/13/20 07:04 93 06/13/20 06:45 93 06/13/20 06:36 06/13/20 06:30 93 06/13/20 06:15 92 06/13/20 06:00 93 06/13/20 05:54 93 06/13/20 05:31 06/13/20 05:30 93 06/13/20 05:16 92 08/13/20 05:15 92 06/13/20 05:01 93 06/13/20 05:00 93 06/13/20 04:45 06/13/20 04:30 92 06/13/20 04:15 94 Resident Activity Tracking Resident Involvement: Resident Care Provided Care Provided: Adult Hospital Medicine (1) CAD (coronary artery disease) Associated angina: angina presence unspecified Coronary Disease-Associated Artery/Lesion type: [place] artery [place] vs. transplanted heart: [place] heart Qualified Code(s): I25.10 - Atherosclerotic heart disease of [place] coronary artery without angina pectoris (2) Infected venous access port Encounter type: initial encounter Qualified Code(s): T80.219A - Unspecified infection due to central venous catheter, initial encounter (3) Hypertension Hypertension type: essential hypertension Qualified Code(s): I10 - Essential (primary) hypertension
--- NOTE | 2020-06-13 14:38 | XRay Report ---
XR chest 1V portable HISTORY: Confirm central line placement COMPARISON: Chest 06/13/2020. FINDINGS: Interval placement left jugular central venous catheter terminates at the SVC. No pneumotho rax. Trace left pleural effusion. Progressive left perihilar consolidative airspace opacity. Right julio ng is clear. IMPRESSION: 1. Left jugular central venous catheter terminates at the SVC. No pneumothorax. 2. Progressive left perihilar consolidative airspace opacity. ACT 112: Negative or not required by law. Electronically signed by: Chaitanya Coon M.D. 06/13/2020 2:37 PM
[2020-06-13] MEDS: PIPERACILLIN/TAZOBACTAM 4.5 GM in DEXTROSE 5% 100 ML IV SCH ×2 (14:57→21:03)
[2020-06-13] MEDS ORDERED: ACETAMINOPHEN 325 MG TAB PO STA (15:06)
[2020-06-13] MEDS ORDERED: ACETAMINOPHEN 1000 MG/100 ML IV IV PRN (15:12)
[2020-06-13] MEDS ORDERED: ICU PROTOCOL FOR HYPERGLYCEMIA PRN (15:52)
[2020-06-13] MEDS ORDERED: PHARMACY GLYCEMIC MGMT CONSULT SCH (16:01)
--- NOTE | 2020-06-13 16:11 | Hospitalist Progress Note ---
Date of Service June 13, 2020 Assessment & Plan (1) Severe sepsis: SEVERE SEPSIS SECONDARY TO PORT INFECTION NEUTROPENIA SECONDARY TO CHEMOTHERAPY SMALL CELL LUNG CANCER, ON CHEMORADIATION, BRAIN METS ON DECADRON Wound Culture 06/11/20: (+) Pseudomonas, pansensitive ff up repeat Wound culture ff up Blood cultures transferred to ICU for hypotension, volume overload with IV fluid resuscitation continue Vancomycin + Zosyn continue Decadron 4mg BID monitor CBC, neutropenic precautions ID consulted appreciate Dr. Frye's recommendations PANCYTOPENIA secondary to Chemotherapy no signs of bleeding monitor hx CAD status post stent reports localized left chest pain troponin x 2 negative EKG no acute ischemia check echo monitor DM 2 on oral medications, well-controlled as all recent outpatient hemoglobin A1c of 6.03 Mar 2020 ISS Facial lesions (HSV outbreak as per patient) ongoing antiviral Rx continue Valtrex contact precautions case discussed in detail and at length with patient and her on the phone all questions answered they are understanding, agreeable, comfortable with the plan of care DVT prophylaxis. SCDs RE thrombocytopenia, history intracranial mets Full code Admission and Anticipated Discharge Date Admission Date: June 13, 2020 Subjective ff up for sepsis seen resting in bed, not in distress but reports having dry cough that developed while at the ER no shortness of breath reports left sided chest wall pain- located with one finger at the parasternal border, no dizziness, nausea no other symptoms BP 154/80 given STAT Lasix, Nebs CXR: no signs of effusion, PNA re-evaluated about an hour later, states she feels somewhat better not in distress, no accessory muscle use, oriented x 3 notified by RN systolic BP 60s immediately went to bedside to evaluate patient sleeping but easily awakened, oriented x 3 speaking in sentences, not in distress states left sided chest pain is better denies dizziness , nausea, palpitations discussed with Dr. Frye for ICU transfer re: septic shock Review of Systems Review of Systems: All systems reviewed & are unremarkable except as noted in HPI & below Physical Exam Physical Exam: General- oriented x 3, not in distress, speaks in sentences with mild effort but no accessory muscle use Head- atraumatic Eyes- PERRL, EOMI, anicteric ENT- oropharynx clear Neck- supple, no JVD, no adenopathy, no thyromegaly; carotids +2/2, no bruits appreciated Lungs- (+) crackles at the bases, no wheezing Heart- tachycardic, regular rhythm; no murmur, no gallop, no rub appreciated Abdomen- normal bowel sounds, nondistended, soft, nontender, no masses or hepatosplenomegaly Extremities-trace pretibial edema, no calf tenderness; peripheral pulses intact Neuro- alert, oriented x 3; CN 2-12 grossly intact; motor 5/5 bilaterally;sensation 100% on all extremities; no other gross focal neurologic deficits Skin- warm & dry Results & Data Results & Data ([facility]) Vital Signs (Past 12 Hours) Vital Signs Temp Pulse Pulse Pulse Pulse Resp BP 06/13/20 15:31 38.8 C H 128 H 30 H 06/13/20 15:10 128 H 30 H 06/13/20 15:01 130 H 29 H 105/72 06/13/20 14:40 129 H 33 H 109/70 06/13/20 14:30 130 H 31 H 109/74 06/13/20 14:00 129 H 34 H 109/72 06/13/20 13:30 125 H 32 H 106/67 06/13/20 13:29 120 H 30 H 06/13/20 13:22 126 H 33 H 103/68 06/13/20 13:09 129 H 33 H 78/41 L 06/13/20 13:01 132 H 33 H 96/41 L 06/13/20 12:34 135 H 36 H 88/57 L 06/13/20 12:33 133 H 32 H 06/13/20 12:00 135 H 7 L 103/52 L 06/13/20 11:41 126 H 29 H 96/55 L 06/13/20 11:39 36.8 C 126 H 37 H 06/13/20 11:01 36.6 C 120 H 06/13/20 09:27 110 H 18 06/13/20 09:00 06/13/20 08:12 36.4 C L 117 H 26 H 06/13/20 07:45 113 H 22 114/75 06/13/20 07:41 37.2 C 115 H 21 90/78 L 06/13/20 07:06 115 H 19 91/61 L 06/13/20 07:04 06/13/20 06:45 120 H 21 95/62 L 06/13/20 06:36 37.4 C 06/13/20 06:30 119 H 25 H 94/47 L 06/13/20 06:15 120 H 21 99/46 L 06/13/20 06:00 125 H 17 100/70 06/13/20 05:54 126 H 25 H 88/47 L 06/13/20 05:31 39.5 C H 06/13/20 05:30 128 H 21 121/66 06/13/20 05:16 127 H 24 06/13/20 05:15 126 H 26 H 105/70 06/13/20 05:01 130 H 26 H 136/95 06/13/20 05:00 20 06/13/20 04:45 124 H 33 H 131/78 06/13/20 04:30 130 H 25 H 100/88 06/13/20 04:15 37.8 C H 128 H 18 122/51 L BP BP Pulse Ox 06/13/20 15:31 95 06/13/20 15:10 95 06/13/20 15:01 95 06/13/20 14:40 93 06/13/20 14:30 86 L 06/13/20 14:00 92 06/13/20 13:30 96 06/13/20 13:29 96 06/13/20 13:22 94 06/13/20 13:09 92 06/13/20 13:01 94 06/13/20 12:34 97 06/13/20 12:33 98 06/13/20 12:00 92 06/13/20 11:41 94 06/13/20 11:39 92 06/13/20 11:01 90 06/13/20 09:27 98 06/13/20 09:00 154/109 H 06/13/20 08:12 87/51 L 93 06/13/20 07:45 92 06/13/20 07:41 92 06/13/20 07:06 93 06/13/20 07:04 93 06/13/20 06:45 93 06/13/20 06:36 06/13/20 06:30 93 06/13/20 06:15 92 06/13/20 06:00 93 06/13/20 05:54 93 06/13/20 05:31 06/13/20 05:30 93 06/13/20 05:16 92 06/13/20 05:15 92 06/13/20 05:01 93 06/13/20 05:00 93 06/13/20 04:45 06/13/20 04:30 92 06/13/20 04:15 94
[2020-06-13] MEDS: VANCOMYCIN HCL 1,500 MG in SODIUM CHLORIDE 0.9% 500 ML IV SCH (17:15)
[2020-06-13] MEDS ORDERED: INSULIN GLARGINE SOLOSTAR 100 UNITS/ML 3 ML PEN SC ONE (17:30)
--- NOTE | 2020-06-13 18:08 | Procedure Note ---
Procedure Note Date of Service June 13, 2020 Procedure: Inserting ultrasound-guided central cut and cover line worker: Dr. Cmaelia Frye Indication: Hypotension Consent: Emergent as well as verbally confirmed by patient and witnessed by nurse and resident Anesthesia: 1% lidocaine without epinephrine local. Procedure: Consent was verified and timeout performed. Appropriate imaging studies were reviewed prior to the procedure. Under aseptic and sterile condition, left IJ vein was accessed under direct ultrasound guidance. Guidewire was confirmed to be within the lumen of vein with the help of ultrasound. Catheter was introduced via Seldinger technique. Guide a wire was removed. Good non-pulsatile blood flow was appreciated from all the ports. The catheter was placed at 21 cm and sut[address] in place. BioPatch was applied to the catheter and a sterile Tegaderm dressing was applied over the catheter with careful attention to sterility. Lung sliding was appreciated post procedure with the help ultrasound. Chest x-ray to follow Patient tolerated the procedure well. Blood loss: Less than 2 cc Complications: None Coding CPT Codes Tubes, Drains, and Vasc Access - Tubes, Drains, and Vasc Access: [id number] Place catheter in vein superior or inferior vena cava ([id number]) Tubes, Drains, and Vasc Access - Tubes, Drains, and Vasc Access: [id number] Ultrasound Guidance For Vascular ([id number]) [facility] [place] Codes (Charges) Tubes, Drains, and Vasc Access Procedure 1: Tubes, Drains, and Vasc Access: [id number] Place catheter in vein superior or inferior vena cava Procedure 2: Tubes, Drains, and Vasc Access: [id number] Ultrasound Guidance For Vascular
[2020-06-13] MEDS ORDERED: RAPID SEQUENCE INDUCTION BAG ONE (18:25)
[2020-06-13] MEDS ORDERED: LEVOFLOXACIN/D5W 750 MG/150 ML BAG IV SCH (19:00)
[2020-06-13] MEDS ORDERED: FENTANYL BOLUS FROM BAG IV PRN (19:13)
[2020-06-13] MEDS ORDERED: fentaNYL DRIP 1,250 MCG/250 ML BAG IV SCH (19:15)
--- NOTE | 2020-06-13 19:16 | Procedure Note ---
Procedure Note Date of Service June 13, 2020 INTUBATION PROCEDURE NOTE: Attending: Dr Camelia Frye MD Patient was evaluated and plan to intubate was made for respiratory distress. Sedative agent used: Etomidate 20 mg, midazolam 5 mg, lidocaine 100 mg Paralysis agent used: Succinylcholine 100 mg Verbal consent was obtained from the patient prior to intubation and she agreed to have intubation done. The patient was prepared in the appropriate fashion. The patient was easily pre-oxygenated by using [id number] ventilation. With help of CMAC grade 2 vocal cords were visualized and 8 [place] ETT was introduced on first attempt to 23 cm at the lip. Fresh blood was appreciated at the vallecula. The stylette was removed and balloon was inflated with 10mL of air. Appropriate Colorimetric change was appreciated for at least 10 breaths. Bilateral chest rise and breath sounds were appreciated without air sounds in the epigastrium. Patient tolerated the procedure well and there were no immediate complications. Chest Xray to follow for confirming placement. Coding CPT Codes Resuscitation - Resuscitation: 32582 Endotracheal Intubation, emergency ([id number]) [facility] [place] Procedure Codes (Charges) Resuscitation Resuscitation: [id number] Endotracheal Intubation, emergency
--- NOTE | 2020-06-13 19:39 | Procedure Note ---
Procedure Note Date of Service June 13, 2020 Note ARTERIAL LINE PROCEDURE NOTE: Procedure: Arterial Line Placement Attending: Dr. Camelia Frye Provider: FILIBERTO Isaac Indication: Monitoring on Pressors Anesthesia: None Line placed emergently in the setting of hypotension/shock requiring multiple vasopressors. A time-out was completed verifying correct patient, procedure, site, positioning, and implant(s) or special equipment if applicable. Allens test was performed to ensure adequate perfusion. Patients right wrist was prepped and draped in the usual sterile fashion. Ultrasound guidance was used to aid needle placement. A 20g Arrow arterial line was introduced into the right radial artery. Catheter was threaded, and the needle was removed with appropriate blood return. Good waveform was observed. The patient tolerated the procedure well. Confirmation of placement with ultrasound. Blood Loss: Minimal Complications: None Procedural Ultrasound Guidance: Procedure Date: 06/13/2020 Indication: Arterial line insertion Attending: Dr. Camelia Frye Provider: FILIBERTO Isaac Artery Identified: YES Line confirmed in Artery with ultrasound: Yes Complications: NONE Patient tolerated procedure: WELL Coding CPT Codes Tubes, Drains, and Vasc Access - Tubes, Drains, and Vasc Access: [id number] Place Catheter In Artery ([id number]) Tubes, Drains, and Vasc Access - Tubes, Drains, and Vasc Access: [id number] U ltrasound Guidance For Vascular ([id number]) [facility] [place] Procedure Codes (Charges) Tubes, Drains, and Vasc Access Procedure 1: Tubes, Drains, and Vasc Access: [id number] Place Catheter In Artery Procedure 2: Tubes, Drains, and Vasc Access: [id number] Ultrasound Guidance For Vascular
--- NOTE | 2020-06-13 19:56 | XRay Report ---
XR chest 1V portable HISTORY: intubation COMPARISON: Chest 06/13/2020. FINDINGS: Interval development of a large left pneumothorax. Near complete collapse of the left lung. Nasogastric tube terminates below the diaphragm. Endotracheal tube terminates 6.7 cm from the elzbieta . Left jugular catheter terminates at the SVC. There is mild right mediastinal shift and slight expan jose of the left hemithorax. Therefore, this is consistent with a tension pneumothorax. Interstitial and vascular thickening as well as patchy density within the right lung have also progressed. This ma y represent mild asymmetric pulmonary edema. IMPRESSION: Interval development of a large left pneumothorax which is concerning for tension pneumothorax. These findings were discussed with Dr. Oliver at 8:04 PM on 06/13/2020. ACT 112: Negative or not required by law. Electronically signed by: Chaitanya Coon M.D. 06/13/2020 8:04 PM
[2020-06-13 20:15] LABS: Base Excess ABG -7.9 mEq/L (-9-1.8); HCO3 ABG 21 mmol/L (19-24); PCO2 ABG 57 mmHg (35-46); PO2 ABG 75 mmHg (80-95)
[2020-06-13 20:24] LABS: Allen Test Pos (Pos)
--- NOTE | 2020-06-13 20:54 | Procedure Note ---
Procedure Note Date of Service June 13, 2020 Procedure: Pigtail chest tube insertion Brick Catcher: Dr. Camelia Frye Indication: Tension pneumothorax Consent: Signed by patient and verified with timeout prior to procedure Anesthesia: 1% lidocaine without epinephrine local Procedure: Emergency consent was applied. Appropriate imaging studies were reviewed prior to the procedure. Patient was placed in a seated position and limited thoracic ultrasound was performed of the left chest. Spot above the diaphragm was visualized. There was some pleural fluid also appreciated. Appropriate site above the diaphragm for chest tube insertion was selected. The skin was prepped and draped in normal sterile fashion. Lidocaine was used for local analgesia. Air was aspirated via the finder needle. A small skin charo was made with the scalpel and the catheter over the needle apparatus was advanced over the rib into the pleural space. With the help of guidewire and Seldinger technique, 14 [place] pigtail catheter was inserted and connected to Pleur-evac. 300 mL blood-tinged fluid was appreciated. Air leak was appreciated with his Wednesday radiation Chest x-ray to follow Fluid was sent for labs, culture and cytology. The patient tolerated the procedure without obvious complication Complications: None Blood loss: Less than 5 cc Coding CPT Codes Pulmonary/Thoracic - Pulmonary and Thoracic: 76780 Bronchoscopy w bronchial or endobronchial bx ([id number]) [facility] [place] Procedure Codes (Charges) Pulmonary/Thoracic Procedure 1: Pulmonary and Thoracic: [id number] Bronchoscopy w bronchial or endobronchial bx
--- NOTE | 2020-06-13 20:59 | Communication Note ---
Date of Service: June 13, 2020 Critical CARE addendum: Patient has been complaining of left-sided chest pain since the time of admission. She was getting morphine as needed. Patient had a left IJ placed in the afternoon chest x-ray after that did not show any signs of pneumothorax and central line was in good position. During the evening patient got more hypoxic and more tachycardic she was also complaining of left-sided pain because of the severe tachypnea and tachycardia plan to intubate was made. Patient was intubated smoothly on first attempt. Chest x-ray post intubation showed pneumothorax with collapse of the left lung and mediastinal shift. Emergent pigtail catheter was inserted on the left side. Chest x-ray showed improved aeration on the left side there is conso lidation/contusion of the left lower lobe. Patient mission CT chest showed a left upper lobe pleural region at the site of mass that the patient had. 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 was called on the given number and made aware about the critical condition of the patient given that she is already on 2 pressors. Coding Level of Care Code Critical Care lars schulzt'l 30 min Comment 20
[2020-06-13] MEDS ORDERED: ATORVASTATIN 40 MG TAB PO SCH (21:00)
[2020-06-13 21:02] LABS: pH ABG 7.18 (7.35-7.45)
--- NOTE | 2020-06-13 21:05 | XRay Report ---
XR chest 1V portable HISTORY: Chest tube placement COMPARISON: Chest 06/13/2020. FINDINGS: Interval placement of a left-sided pigtail chest tube which terminates within the left midl isabella zone. Significant decrease in size of the now small left pneumothorax with reexpansion of the kaylee ority of the left lung and resolution of the mediastinal shift. Left perihilar consolidation persists . Mild interstitial pulmonary edema has progressed. Satisfactory support line placement with the endo tracheal tube terminates approximately 6.2 cm from the elzbieta. IMPRESSION: Status post left chest tube placement with significant decrease in size of the now small left pneumot horax and resolution of the mediastinal shift. The mild interstitial pulmonary edema has progressed. ACT 112: Negative or not required by law. Electronically signed by: Chaitanya Coon M.D. 06/13/2020 9:04 PM
[2020-06-13] MEDS ORDERED: HYDROCORTISONE SOD 200 MG in SYRINGE 0 ML IV STA (21:25)
[2020-06-13 21:38] LABS: Hematocrit (blood only) 34.1 % (37-47); Hemoglobin 11.2 g/dL (12.0-16.0); Mean Corpuscular Hemoglobin 30.5 pg (25-34); Mean Corpuscular Hgb Conc 32.8 g/dL (32-36); Mean Corpuscular Volume 92.9 fL (80-100); Mean Platelet Volume 10.5 fL (7.4-10.4); Platelet Count 54 K/uL (130-400); RDW Coefficient of Variation 15.6 % (11.5-14.5); RDW Standard Deviation 52.4 fL (36.4-46.3); Red Blood Count 3.67 M/uL (4.2-5.4)
[2020-06-13 21:54] LABS: BUN Creatinine Ratio 17.9 (10-20); Creatinine Clr Calc Pharmacy 50.5 ml/min; Est GFR (African American) 36.1; Est GFR (Non-African American) 31.1; Potassium 4.1 mmol/L (3.5-5.1)
[2020-06-13] MEDS ORDERED: ROCURONIUM BROMIDE 10 MG/ML 5 ML VIAL IV ONE ×2 (22:13→22:21)
[2020-06-13 23:13] LABS: iSTAT Art Bld Gas pCO2 Correct 75 mmHg (35-46); iSTAT Art Bld Gas pH Corrected 7.027 (7.35-7.45); iSTAT Arterial Blood Gas HCO3 20 meg/L (19-24); iSTAT Arterial Blood Gas pCO2 73 mmHg (35-46); iSTAT Arterial Blood Gas pH 7.03 (7.35-7.45); iSTAT Arterial Blood Gas pO2 67 mmHg (80-95); iSTAT Arterial Blood Gas pO2 C 69; iSTAT Carbon Dioxide 22 mmol/L (24-31); iSTAT FiO2 100 %; iSTAT Hematocrit 34 % (37-47); iSTAT Hemoglobin 11.6 g/dl (12.0-16.0); iSTAT Potassium 4.2 mmol/L (3.3-5.0); iSTAT Site Art Line; iSTAT Sodium 135 mmol/L (135-144)
[2020-06-14] MEDS: IPRATROPIUM BROMIDE NEB SOLN 0.02% 2.5 ML VIAL INH SCH (00:17)
[2020-06-14] MEDS: LEVALBUTEROL 1.25MG/0.5ML NEB INH SCH (00:17)
[2020-06-14] MEDS ORDERED: STAT IV Infusion **Titration per Protocol STA (00:56)
[2020-06-14] MEDS ORDERED: PHENYLEPHRINE HCL 20 MG in DEXTROSE 5% 500 ML IV SCH (01:00)
[2020-06-14] MEDS ORDERED: SODIUM BICARB 8.4% INJ 50 MEQ/50 ML SYR IV STA (01:24)
[2020-06-14 01:34] LABS: iSTAT Art Bld Gas pCO2 Correct 79 mmHg (35-46); iSTAT Art Bld Gas pH Corrected 6.968 (7.35-7.45); iSTAT Arterial Blood Gas HCO3 18 meg/L (19-24); iSTAT Arterial Blood Gas pCO2 77 mmHg (35-46); iSTAT Arterial Blood Gas pH 6.98 (7.35-7.45); iSTAT Arterial Blood Gas pO2 53 mmHg (80-95); iSTAT Arterial Blood Gas pO2 C 55; iSTAT Carbon Dioxide 20 mmol/L (24-31); iSTAT FiO2 100 %; iSTAT Hematocrit 37 % (37-47); iSTAT Hemoglobin 12.6 g/dl (12.0-16.0); iSTAT Site Art Line; iSTAT Sodium 131 mmol/L (135-144)
[2020-06-14] MEDS: NOREPINEPHRINE BIT INJ 8 MG in DEXTROSE 5% 500 ML IV SCH (01:34)
[2020-06-14] MEDS: VANCOMYCIN HCL 1,500 MG in SODIUM CHLORIDE 0.9% 500 ML IV SCH (01:36)
--- NOTE | 2020-06-14 01:47 | Critical Care Progress Note ---
Date of Service June 14, 2020 Assessment & Plan (1) Severe sepsis: Patient has continued to decompensate from a hemodynamical standpoint throughout the night. As previously discussed, patient was emergently intubated for worsening hypoxia with respiratory failure and chest x-ray revealed tension pneumothorax, and chest tube was emergently placed. Despite improvement of pneumothorax on repeat chest x-ray, patient's left lung field had developed significant congestion. The patient's hemodynamical status has continued to worsen throughout the night with worsening hypoxia, hypercapnia, and hypotension. She is requiring 3 vasopressors and 100% FiO2, but continued to decompensate. Patient's family was called to the bedside and goals of care and patient's clinical status were discussed at length. Initially patient was made DNR, however patient continued to decompensate with family at the bedside and they ultimately opted for comfort care measures. At this time we will discontinue all life supporting medications and therapies per family wishes. We will continue with pain management therapy to ensure comfort during terminal extubation, and alike comfort orders. CRITICAL CARE TIME - I have personally spent 65 minutes of critical care time in the direct management of this patient. This is a life/limb threatening event. This includes time spent evaluating patient, direct bedside care, chart review, placing orders, interpretation of diagnostic studies, discussion with consultants, patient, and family members, as well as other required patient management activities. This time is exclusive of all separately billable procedures, and teaching time and separate from and in addition to any other critical care service time. (2) Infected venous access port: (3) CAD (coronary artery disease): (4) Hypertension: (5) Lung cancer metastatic to brain: (6) Respiratory failure with hypoxia: (7) Tension pneumothorax: (8) Septic shock: Admission and Anticipated Discharge Date Admission Date: June 13, 2020 Subjective Unfortunately this morning the patient has taken a turn for the worse overnight. Yesterday evening she was intubated as she was becoming increasingly hypoxic and in respiratory distress, and increasingly hypotensive. Post intubation chest x-ray had showed pneumothorax with mediastinal shift, and a emergent chest tube was placed by Dr. Frye. Repeat chest x-ray showed improvement of pneumothorax, but significantly worsening congestion of the left lung field. Throughout the night patient has continued to become incrementally more hypoxic and hypotensive, and has developed hypercapnia on blood gas. As patient has continued to exhibit increasingly poor prognosis, patient's family was called to the bedside and the patient's condition and course was discussed in length. Initially, family opted to make the patient DNR in the event she were to experience cardiac arrest, but continue with care. However, patient's clinical status continued to deteriorate with family at bedside, and family has made the decision to pursue comfort care and terminally extubate at this time. Review of Systems Review of Systems: Unobtainable due to cognitive status and Unobtainable due to endotracheal tube Physical Exam Constitutional: + obese and + mechanically ventilated Eyes: PERRL, conjunctivae normal, anicteric sclerae ENMT: external ear and nose normal, oropharynx normal Neck: trachea midline, no thyromegaly Respiratory: Lungs clear to auscultation right [place], diminished with coarse crackles in left upper and lower lobes. Symmetrical chest wall movement. Mechanically ventilated. Cardiovascular: Tachycardia, no edema, no JVD, capillary refill sluggish Gastrointestinal (Abdomen): Abdomen obese, soft, nontender, normal bowel sounds Skin: No rashes, warm, dry Neurologic: Unable to assess due to sedation/ET tube Psychiatric: Unable to assess due to sedation/ET tube Genitourinary: Indwelling White catheter Results & Data Results & Data ([facility]) Vital Signs (Past 12 Hours) Vital Signs Temp Pulse Resp BP Pulse Ox 06/14/20 01:25 30 H 06/14/20 01:20 128 H 28 H 72 L 06/14/20 01:02 37.6 C H 143 H 103/58 L 76 L 06/14/20 00:16 37.6 C H 140 H 79 L 06/14/20 00:01 37.6 C H 139 H 80 L 06/14/20 00:00 37.6 C H 139 H 133/75 80 L 06/13/20 23:45 37.6 C H 138 H 111/75 06/13/20 23:30 37.6 C H 137 H 118/77 82 L 06/13/20 23:15 37.6 C H 137 H 28 H 132/88 83 L 06/13/20 23:01 134 H 85 L 06/13/20 23:00 134 H 28 H 137/83 85 L 06/13/20 22:45 37.5 C 134 H 118/87 86 L 06/13/20 22:33 135 H 117/75 86 L 06/13/20 22:30 135 H 86 L 06/13/20 22:15 131 H 94/72 L 86 L 06/13/20 22:01 131 H 94/69 L 86 L 06/13/20 22:00 131 H 89 L 06/13/20 21:45 130 H 90/68 L 89 L 06/13/20 21:30 129 H 97/70 L 06/13/20 21:15 129 H 113/74 93 06/13/20 21:01 131 H 94 06/13/20 21:00 38.7 C H 132 H 24 104/74 94 06/13/20 20:46 136 H 24 83/72 L 94 06/13/20 20:31 137 H 19 80/29 L 92 06/13/20 20:16 145 H 21 88/69 L 90 06/13/20 20:01 39.0 C H 143 H 25 H 115/76 91 06/13/20 20:00 143 H 25 H 88 L 06/13/20 19:58 82/69 L 90 06/13/20 19:56 127/88 91 06/13/20 19:54 135/88 91 06/13/20 19:52 127/70 90 06/13/20 19:51 133/71 90 06/13/20 19:49 144 H 25 H 128/87 91 06/13/20 19:18 135 H 24 93/70 L 91 06/13/20 19:17 135 H 19 105/62 91 06/13/20 19:14 135 H 24 93/67 L 90 06/13/20 19:13 135 H 29 H 101/63 90 06/13/20 19:11 135 H 24 91 06/13/20 19:10 136 H 24 112/59 L 90 06/13/20 19:08 136 H 24 103/58 L 90 06/13/20 19:07 136 H 24 103/63 90 06/13/20 19:04 137 H 23 108/64 90 06/13/20 19:02 137 H 23 99/67 L 89 L 06/13/20 19:00 138 H 32 H 99/66 L 89 L 06/13/20 18:05 133 H 24 93 06/13/20 16:46 39.3 C H 132 H 26 H 118/66 93 06/13/20 16:45 132 H 30 H 93 06/13/20 16:31 132 H 28 H 94 06/13/20 16:30 131 H 28 H 111/70 94 06/13/20 16:15 38.6 C H 131 H 30 H 108/70 95 06/13/20 16:01 132 H 22 96 06/13/20 16:00 38.3 C H 132 H 19 115/73 96 06/13/20 15:45 130 H 37 H 96 06/13/20 15:31 38.8 C H 128 H 30 H 95 06/13/20 15:10 128 H 30 H 95 06/13/20 15:01 130 H 29 H 105/72 95 06/13/20 14:40 129 H 33 H 109/70 93 06/13/20 14:30 130 H 31 H 109/74 86 L 06/13/20 14:00 129 H 34 H 109/72 92 Coding Level of Care Code Critical Care 1st 30-74 mins Diagnoses Severe sepsis A41.9; R65.20 Infected venous access port T80.219A Encounter type: initial encounter CAD (coronary artery disease) I25.10 Associated angina: angina presence unspecified Coronary Disease-Associated Artery/Lesion type: [place] artery [place] vs. transplanted heart: [place] heart Hypertension I10 Hypertension type: essential hypertension Lung cancer metastatic to brain C34.90; C79.31 Respiratory failure with hypoxia J96.91 Tension pneumothorax J93.0 Septic shock A41.9; R65.21 (1) CAD (coronary artery disease) Associated angina: angina presence unspecified Coronary Disease-Associated Artery/Lesion type: [place] artery [place] vs. transplanted heart: [place] heart Qualified Code(s): I25.10 - Atherosclerotic heart disease of [place] coronary artery without angina pectoris (2) Infected venous access port Encounter type: initial encounter Qualified Code(s): T80.219A - Unspecified infection due to central venous catheter, initial encounter (3) Hypertension Hypertension type: essential hypertension Qualified Code(s): I10 - Essential (primary) hypertension
[2020-06-14] MEDS ORDERED: LORazepam 0.5 MG TAB PO PRN (01:52)
[2020-06-14] MEDS ORDERED: ONDANSETRON 4 MG OD TAB SL PRN (01:52)
[2020-06-14] MEDS ORDERED: ATROPINE SULFATE 1% OP SOLN 2 ML BTL SL PRN (01:52)
[2020-06-14] MEDS ORDERED: LORazepam 0.5 MG/1 ML VIAL IV PRN (01:52)
[2020-06-14] MEDS ORDERED: GLYCOPYRROLATE 0.2 MG/ML VIAL IV PRN (01:52)
[2020-06-14] MEDS ORDERED: ONDANSETRON INJ 2 MG/ML 2 ML VIAL IV PRN (01:52)
--- NOTE | 2020-06-14 02:41 | Death Pronouncement Note ---
Date of Service June 14, 2020 Pronouncement Note Admission Date Admission Date: June 13, 2020 Date and Time of Date of : 06/14/20 Time of : 02:25 Contributing Factors (1) Severe sepsis: (2) Infected venous access port: (3) CAD (coronary artery disease): (4) Hypertension: (5) Lung cancer metastatic to brain: (6) Respiratory failure with hypoxia: (7) Tension pneumothorax: (8) Septic shock: Hospital Course Hospital Course: 59-year-old female with metastatic stage IV small cell lung cancer, admitted to ICU yesterday with septic shock requiring vasopressors. Continue to decompensate from a hemodynamical and respiratory status and required intubation. On repeat chest x-ray following intubation was found to have tension pneumothorax and chest tube inserted. Patient continued to decompensate throughout the night and family called to the bedside and ul timately opted to withdrawal care with comfort measures. Patient shortly after discontinuing vasopressors and endotracheal tube with mechanical ventilation. Summary Additional details: I was contacted by nursing staff regarding the patients declining status and concerns for imminent demise. Assessment: I presented to the patients room for evaluation. Upon assessment, the patient was found to be in a terminal state. Pupils were fixed and dilated without response. No palpable pulses appreciated. No spontaneous breaths noted. Heart sounds were absent. Time of : 0225 as pronounced by myself. Family present at bedside. Appropriate response to grief appreciated. Condolences provided. Questions were addressed and emotional support was provided. Patients primary service was contacted and made aware of patient demise. Pronouncement section of the Certificate was filled out and signed by myself. Cause of : Primary -shock Secondary -hypoxic/hypercapnic respiratory failure Contributing Causes of -stage IV small cell lung cancer with mets to brain, sepsis, pneumothorax Please feel free to contact me with any questions regarding the above-mentioned course. Additional Data Attending physician: Shayne Willis MD Coding Level of Care Code None Diagnoses Severe sepsis A41.9; R65.20 Infected venous access port T80.219A Encounter type: initial encounter CAD (coronary artery disease) I25.10 Associated angina: angina presence unspecified Coronary Disease-Associated Artery/Lesion type: [place] artery [place] vs. transplanted heart: [place] heart Hypertension I10 Hypertension type: essential hypertension Lung cancer metastatic to brain C34.90; C79.31 Respiratory failure with hypoxia J96.91 Tension pneumothorax J93.0 Septic shock A41.9; R65.21
--- NOTE | 2020-06-14 06:14 | Electrocardiogram Report ---
Test Reason : Blood Pressure : / mmHG Vent. Rate : 129 BPM Atrial Rate : 129 BPM P-R Int : 126 ms QRS Dur : 078 ms QT Int : 276 ms P-R-T Axes : 065 038 073 degrees QTc Int : 404 ms Poor data quality, interpretation may be adversely affected Sinus tachycardia Otherwise normal ECG When compared with ECG of 15-APR-2020 11:46, QRS duration has decreased Confirmed by Leonides Mckeon ([id number]) on 06/14/2020 6:13:46 AM Referred By: REFERRED SELF Confirmed By:Leonides Mckeon
--- NOTE | 2020-06-14 06:25 | Electrocardiogram Report ---
Test Reason : Blood Pressure : / mmHG Vent. Rate : 108 BPM Atrial Rate : 108 BPM P-R Int : 142 ms QRS Dur : 084 ms QT Int : 310 ms P-R-T Axes : 061 032 065 degrees QTc Int : 415 ms Sinus tachycardia Low voltage QRS Borderline ECG When compared with ECG of 13-JUN-2020 04:29, No significant change was found Confirmed by Leonides Mckeon ([id number]) on 06/14/2020 6:24:54 AM Referred By: REFERRED SELF Confirmed By:Leonides Mckeon
--- NOTE | 2020-06-14 07:53 | Discharge Summary ---
Date of Service June 14, 2020 Admission HPI Per Admitting Provider History obtained from patient and records. Medical history significant for small cell lung cancer status post chemoradiation ongoing steroid Rx, CAD status post stent, hypertension, DM 2 on oral medications, past tobacco abuse. Last confinement 2011 under Cardiology service for STEMI status post RCA stent placement. Patient diagnosed to have extensive small cell lung cancer with documented brain mets on MRI last April 2020. Underwent chemoradiation. Ongoing steroid taper as per patient. 3 weeks ago patient underwent tunneled Aport catheter placement on the right IJV by [facility] [place] Surgery outpatient. Last week patient noted some discomfort and drainage on incision site. Patient seen at [facility] [place] surgeon's office 2 days ago. Wound culture sent as per records. Topical bacitracin and Augmentin course prescribed by provider. Patient instructed to follow-up at the ER if with worsening. Patient woke up early this morning with fever, chills and pain on R port site. Achy left-sided chest discomfort nonradiating separate from a port site. No unusual cough, headache, abdominal pain/diarrhea/dysuria symptoms. At the ER, patient received vancomycin and cefepime for sepsis. 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 Admission Exam Per Admitting Provider GENERAL: uncomfortable, morbidly obese, Tachypneic SKIN: Normal color, warm HEENT: Alopecia, pink palpebral conjunctivae, no ptosis, some ulcerated lesions over the nasal bridge and maxilla, dry buccal mucosa NECK : Supple, short neck, no tenderness CHEST : Ecchymotic induration right chest wall, tender HEART : Tachycardic, no obvious murmurs ABDOMEN: Some distention, nontender EXTREMITIES : Ecchymotic spot RLE, bilateral LE swelling, no LE tenderness NEUROLOGIC : Coherent, no facial asymmetry, no other gross focality Principal Diagnosis Acute Hypoxic Respiratory Failure, Septic Shock Discharge Data Allergies Allergy/AdvReac Type Severity Reaction Status Date / Time LETTY Inhibitors Allergy Unknown Unknown Verified 06/13/20 05:02 lisinopril Allergy Unknown Unknown Verified 06/13/20 05:02 tree and shrub pollen Allergy Nasal Verified 06/13/20 05:02 Discharge Consultations 06/13/20 05:58 ED Decision to Admit Stat 06/13/20 08:09 Consult General Surgery Routine 06/13/20 08:38 Consult Infectious Diseases Routine 06/13/20 11:40 Consult Vice President Of Sales Routine 06/14/20 01:54 Consult Case Management - Discharge Planning Routine Consult Palliative Care Routine Ordered Studies 06/13/20 04:43 CT chest w con Urgent 06/13/20 11:50 US point of care ultrasound Routine 06/13/20 20:02 US point of care ultrasound Stat Hospital Course (1) Severe sepsis: SEVERE SEPSIS SECONDARY TO PORT INFECTION NEUTROPENIA SECONDARY TO CHEMOTHERAPY SMALL CELL LUNG CANCER, ON CHEMORADIATION, BRAIN METS ON DECADRON Wound Culture 06/11/20: (+) Pseudomonas, pansensitive transferred to ICU for hypotension, volume overload with IV fluid resuscitation given Vancomycin + Zosyn continued Decadron 4mg BID per [facility] notes, ICU: Patient has continued to decompensate from a hemodynamical standpoint throughout the night. As previously discussed, patient was emergently intubated for worsening hypoxia with respiratory failure and chest x-ray revealed tension pneumothorax, and chest tube was emergently placed. Despite improvement of pneumothorax on repeat chest x-ray, patient's left lung field had developed significant congestion. The patient's hemodynamical status has continued to worsen throughout the night with worsening hypoxia, hypercapnia, and hypotension. She is requiring 3 vasopressors and 100% FiO2, but continued to decompensate. Patient's family was called to the bedside and goals of care and patient's clinical status were discussed at length. Initially patient was made DNR, however patient continued to decompensate with family at the bedside and they ultimately opted for comfort care measures. At this time we will discontinue all life supporting medications and therapies per family wishes. We will continue with pain management therapy to ensure comfort during terminal extubation, and alike comfort orders. -- patient pronounced at 2:25pm PANCYTOPENIA secondary to Chemotherapy no signs of bleeding Total Time Total Time Spent Total Time Spent (In Minutes): > 30 mins Discharge Plan Discharge Items Patient Disposition:
[2020-06-14] MEDS ORDERED: PANTOprazole 40 MG in SYRINGE 0 ML IV SCH (11:00)
[2020-06-14] MEDS ORDERED: VANCOMYCIN TROUGH ONE (11:30)
== END 2020-06-14 02:25 | disposition expired | DRG 314 ==
LOC: ED 04:10 → 2S 06:50 → 1E 11:38